=== PATIENT | female | born 1970 | race Caucasian/White ===

== ENCOUNTER 2018-07-14 15:17 | Emergency (ER) | payer BC ==
--- NOTE | 2018-07-14 15:39 | ER ---
Nurse's Notes [facility] Name: Kelsea Briones Age: 47 yrs Sex: Female : 1970 Arrival Date: 07/14/2018 Time: 15:20 Bed 9 Private MD: Diagnosis: Allergic contact dermatitis due to plants, except food Presentation: 07/14 15:21 Presenting complaint: Patient states: rash started Saturday after chopping down some trees. Rash to BUE, BLE, face, trunk. Transition of care: patient was not received from another setting of care. Onset of symptoms was July 12, 2018. Care prior to arrival: None. 15:21 Method Of Arrival: Ambulatory sv 15:21 Acuity: ARACELI 4 sv Historical: - Allergies: 15:23 No Known Allergies; sv - PMHx: 15:23 None; sv Screenin:30 Abuse screen: Denies threats or abuse. Denies injuries from another. Nutritional aj screening: No deficits noted. Tuberculosis screening: No symptoms or risk factors identified. Fall Risk None identified. Assessment: 15:30 General: Appears in no apparent distress. comfortable, Behavior is calm, cooperative, aj appropriate for age. Pain: Denies pain. Neuro: Level of Consciousness is awake, alert, obeys commands, Oriented to person, place, time, situation, Appropriate for age. Respiratory: Airway is patent Respiratory effort is even, unlabored, Respiratory pattern is regular, symmetrical. Derm: Skin is intact, is healthy with good turgor, Skin is pink, warm \T\ dry. normal, Rash noted that is itchy, on right arm and left arm. Vital Signs: 15:23 BP 123 / 81; Pulse 78; Resp 16; Temp 98.4; Pulse Ox 98% ; Weight 61.23 kg; Height 5 ft. sv 7 in. (170.18 cm); Pain 0/10; 15:23 Body Mass Index 21.14 (61.23 kg, 170.18 cm) sv ED Course: 15:20 Patient arrived in ED. mr 15:22 Triage completed. sv 15:23 Arm band placed on. sv 15:26 [facility] kb 15:26 Gaurang Liu MD is Attending Physician. kb 15:30 Patient has correct armband on for positive identification. aj 15:30 No provider procedures requiring assistance completed. Patient did not have IV access aj during this emergency room visit. 15:39 Evonne Veras, RN is Primary Nurse. aj Administered Medications: 15:44 Drug: Pepcid 20 mg Route: PO; aj 15:58 Follow up: Response: No adverse reaction aj 15:44 Drug: predniSONE 40 mg Route: PO; aj 15:58 Follow up: Response: No adverse reaction aj Outcome: 15:30 Discharged to home ambulatory. aj 15:30 Condition: good 15:30 Discharge instructions given to patient, Instructed on discharge instructions, follow up and referral plans. medication usage, Demonstrated understanding of instructions, follow-up care, medications, Prescriptions given X 2. 15:38 Discharge ordered by . kb 15:58 Patient left the ED. aj Signatures: Dayana Tobar, NICOLASA POPE-Teresa Jones, RN RN Evonne Chauhan, RN RN erum Lidia Olivares
--- NOTE | 2018-07-14 15:39 | EDPHYS ---
Physician Documentation [facility] Name: Kelsea Briones Age: 47 yrs Sex: Female : 1970 Arrival Date: 07/14/2018 Time: 15:20 Bed 9 Private MD: ED Physician Gaurang Liu HPI: 07/14 15:36 This 47 yrs old Female presents to ER via Ambulatory with complaints of Rash. kb 15:36 The patient's rash thought to be caused by Contact allergy. The rash is located on the kb body diffusely. The rash can be described as papular. Onset: The symptoms/episode began/occurred 3 day(s) ago. Associated signs and symptoms: Pertinent positives: itching. Severity of symptoms: At their worst the symptoms were moderate in the emergency department the symptoms are unchanged. Treatment given at home: Benadryl. The patient has not experienced similar symptoms in the past. The patient has not recently seen a physician. Pt reports she recently cut down some trees that may have had poison nora on them. Reports rash and itching . Historical: - Allergies: 15:23 No Known Allergies; sv - PMHx: 15:23 None; sv ROS: 15:34 Constitutional: Negative for fever, chills, and weight loss, Cardiovascular: Negative kb for chest pain, palpitations, and edema, Respiratory: Negative for shortness of breath, cough, wheezing, and pleuritic chest pain, Abdomen/GI: Negative for abdominal pain, nausea, vomiting, diarrhea, and constipation, Back: Negative for injury and pain, MS/Extremity: Negative for injury and deformity, Neuro: Negative for headache, weakness, numbness, tingling, and seizure. 15:34 Skin: Positive for rash, diffusely. Exam: 15:33 Constitutional: This is a well developed, well nourished patient who is awake, alert, kb and in no acute distress. Head/Face: Normocephalic, atraumatic. Chest/axilla: Normal chest wall appearance and motion. Nontender with no deformity. No lesions are appreciated. Cardiovascular: Regular rate and rhythm with a normal S1 and S2. No gallops, murmurs, or rubs. Normal PMI, no JVD. No pulse deficits. Respiratory: Lungs have equal breath sounds bilaterally, clear to auscultation and percussion. No rales, rhonchi or wheezes noted. No increased work of breathing, no retractions or nasal flaring. Abdomen/GI: Soft, non-tender, with normal bowel sounds. No distension or tympany. No guarding or rebound. No evidence of tenderness throughout. MS/ Extremity: Pulses equal, no cyanosis. Neurovascular intact. Full, normal range of motion. Neuro: Awake and alert, GCS 15, oriented to person, place, time, and situation. Cranial nerves II-XII grossly intact. Motor strength 5/5 in all extremities. Sensory grossly intact. Cerebellar exam normal. Normal gait. 15:33 Skin: rash a mild rash is noted, consistent with contact dermatitis, and is diffusely located. Vital Signs: 15:23 BP 123 / 81; Pulse 78; Resp 16; Temp 98.4; Pulse Ox 98% ; Weight 61.23 kg; Height 5 ft. sv 7 in. (170.18 cm); Pain 0/10; 15:23 Body Mass Index 21.14 (61.23 kg, 170.18 cm) sv MDM: 15:26 Patient medically screened. kb 15:33 Data reviewed: vital signs, nurses notes. Data interpreted: Pulse oximetry: on room air kb is 98 %. Interpretation: normal. Counseling: I had a detailed discussion with the patient and/or guardian regarding: the historical points, exam findings, and any diagnostic results supporting the discharge/admit diagnosis, the need for outpatient follow up, a family practitioner, to return to the emergency department if symptoms worsen or persist or if there are any questions or concerns that arise at home. Administered Medications: 15:44 Drug: Pepcid 20 mg Route: PO; aj 15:58 Follow up: Response: No adverse reaction aj 15:44 Drug: predniSONE 40 mg Route: PO; aj 15:58 Follow up: Response: No adverse reaction Disposition: 07/14/18 15:38 Discharged to Home. Impression: Allergic contact dermatitis due to plants, except food. - Condition is Stable. - Discharge Instructions: Poison Nora Dermatitis, [id number]. - Prescriptions for Pepcid 20 mg Oral Tablet - take 1 tablet by ORAL route every 12 hours for 5 days; 10 tablet. Prednisone 20 mg Oral Tablet - take 1 tablet by ORAL route once daily for 5 days; 5 tablet. - Medication Reconciliation Form, Thank You Letter, Antibiotic Education, Prescription Opioid Use form. - Follow up: Emergency Department; When: As needed; Reason: Worsening of condition. Follow up: Private Physician; When: 2 - 3 days; Reason: Recheck today's complaints, Continuance of care, Re-evaluation by your physician. Addendum: 07/16/2018 07:01 Co-signature as Attending Physician, Gaurang Liu MD. r n Signatures: Dayana Tobar, TOSHIA-C TOSHIA-Teresa Jones RN RN Evonne Chauhan RN RN aj Nieto, Roman, MD MD learning specialist: (The following items were deleted from the chart) 07/14 15:58 15:38 07/14/2018 15:38 Discharged to Home. Impression: Allergic contact dermatitis due aj to plants, except food. Condition is Stable. Forms are Medication Reconciliation Form, Thank You Letter, Antibiotic Education, Prescription Opioid Use. Follow up: Emergency Department; When: As needed; Reason: Worsening of condition. Follow up: Private Physician; When: 2 - 3 days; Reason: Recheck today's complaints, Continuance of care, Re-evaluation by your physician. kb
[2018-07-14] MEDS ORDERED: FAMOTIDINE 20 MG TAB ONE (15:55)
[2018-07-14] MEDS ORDERED: predniSONE 20 MG TAB ONE (15:55)
--- OUTSIDE RECORDS SUMMARY | 2018-07-14 16:29 | XMS REPORT ---
:1970 Author Organization [employer] Care Team Providers Name Role Phone Gerard Liu Provider Role Unavailable Allergies, Adverse Reactions, Alerts Substance Reaction Event Type N.K.D.A. Info Not Available Non Drug Allergy Problems Problem Type Condition Code Onset Dates Condition Status Assessment Cervicalgia M54.2 Active Assessment Tobacco abuse counseling Z71.6 Active Assessment Drug-seeking behavior Z76.5 Active Medications Medication Code Code Instructions Start End Date Status Dosage System Date BusPIRone HCl ND 89615632139 10 MG Orally May 13, Active 1 tablet Twice a day 2018 Magnesium ND 06055093168 420 MG Orally May 13Nov 09, Active 1 tablet Oxide Once a day 2018 2018 as needed Diclofenac ND 67751833277 75 MG Orally May 13August 11, Active 1 tablet Sodium Twice a day 2018 2018 with food or milk Results No Known Results Summary Purpose eClinicalWorks Submission
== END 2018-07-14 15:58 | disposition home or self-care (01) ==
LOC: ER 15:17
DX: L23.7 Allergic contact dermatitis due to plants, except food (principal)
CPT/HCPCS: 99283; J7512

== ENCOUNTER 2018-10-30 08:00 | Emergency (ER) | payer BC ==
--- OUTSIDE RECORDS SUMMARY | 2018-10-30 08:05 | XMS REPORT ---
[...] Status Dosage System Date BusPIRone HCl ND 00129589394 10 MG Orally May 13, Active 1 tablet Twice a day 2018 Magnesium ND 36423108782 420 MG Orally May 13Nov 09, Active 1 tablet Oxide Once a day 2018 2018 as needed Diclofenac ND 83287328993 75 MG Orally May 13August 11, Active 1 tablet Sodium Twice a day 2018 2018 with food or milk Results No Known Results Summary Purpose [employer] Submission
[2018-10-30] MEDS ORDERED: MORPHINE 4 MG/ML SYR ONE (08:20)
[2018-10-30] MEDS ORDERED: ONDANSETRON 4 MG/2 ML VIAL ONE (08:20)
[2018-10-30] MEDS ORDERED: NA CHLORIDE 0.9% 1,000 ML ONE (08:20)
[2018-10-30 08:59] LABS: Absolute Lymphocytes (CBC) 1.6 K/uL (0.7-4.9); Basophils % 0.5 % (0-1.3); Hematocrit 41.5 % (36.0-45.0); Lymphocytes % 23.2 % (15.3-44.8); MPV 8.8 fL (7.6-11.3); RBC Red Blood Cell Count 4.39 M/uL (3.86-4.86)
[2018-10-30 09:12] LABS: Albumin 3.9 g/dL (3.4-5.0); Bilirubin Direct 0.1 mg/dL (0-0.2); Bilirubin Total 0.2 mg/dL (0.2-1.0); Protein, Total 7.3 g/dL (6.4-8.2)
[2018-10-30 09:37] LABS: Urine Blood 1+ (NEG); Urine Glucose NEGATIVE (NEG); Urine Protein NEGATIVE (NEG); Urine pH 5.5 (5.0-7.0)
--- NOTE | 2018-10-30 09:39 | RAD REPORT ---
EXAM DESCRIPTION: CTAbdomen Pelvis W Contrast - 10/30/2018 9:31 am CLINICAL HISTORY: Abdominal pain. Abd pain;GI bleed COMPARISON: No comparisons TECHNIQUE: Biphasic CT imaging of the abdomen and pelvis was performed with 100 ml non-ionic IV cont rast. All CT scans are performed using dose optimization technique as appropriate and may include automated exposure control or mA/KV adjustment according to patient size. FINDINGS: The lung bases are clear. The liver, spleen, pancreas, adrenal glands and kidneys are within normal limits. No bowel obstruction, free air, free fluid or abscess. Moderate fecal retention is seen in the colon. Mild thickening is present of the descending colon and rectosigmoid colon which could indicate mild colitis. The appendix is normal. No evidence of significant lymphadenopathy. No suspicious bony findings. IMPRESSION: Mild descending and rectosigmoid colitis is suspected. Moderate fecal retention in the c olon is present.
--- NOTE | 2018-10-30 10:04 | ER ---
Nurse's Notes [facility] Name: Kelsea Briones Age: 48 yrs Sex: Female : 1970 Arrival Date: 10/30/2018 Time: 08:04 Bed 5 Private MD: Gerard Liu Diagnosis: Left sided colitis;Constipation Presentation: 10/30 08:15 Presenting complaint: Constipation x 3-4 weeks, lower abdominal pain and bright red hb blood in stool x 2-3 days. Transition of care: patient was not received from another setting of care. Onset of symptoms is unknown. Risk Assessment: Do you want to hurt yourself or someone else? Patient reports no desire to harm self or others. Initial Sepsis Screen: Does the patient meet any 2 criteria? No. Patient's initial sepsis screen is negative. Does the patient have a suspected source of infection? No. Patient's initial sepsis screen is negative. Care prior to arrival: None. 08:15 Method Of Arrival: Ambulatory hb 08:15 Acuity: ARACELI 3 hb Triage Assessment: 08:17 General: Appears in no apparent distress. uncomfortable, Behavior is calm, cooperative. hb Pain: Pain currently is 7 out of 10 on a pain scale. EENT: No signs and/or symptoms were reported regarding the EENT system. Neuro: Level of Consciousness is awake, alert, obeys commands, Oriented to person, place, time, situation. Cardiovascular: Capillary refill < 3 seconds Patient's skin is warm and dry. Respiratory: Airway is patent Respiratory effort is even, unlabored, Respiratory pattern is regular, symmetrical. GI: Abdomen is flat, Bowel sounds present X 4 quads. Abd is soft and non tender X 4 quads. Reports lower abdominal pain, bloody stool. : No signs and/or symptoms were reported regarding the genitourinary system. Derm: Skin is intact, is healthy with good turgor, Skin is pink, warm \T\ dry. Musculoskeletal: No signs and/or symptoms reported regarding the musculoskeletal system. SWAMPER: 08:16 LMP N/A - Post-menopause hb Historical: - Allergies: 08:16 No Known Allergies; hb - Home Meds: 08:16 None [Active]; hb - PMHx: 08:16 Migraines; hb - PSHx: 08:16 ; hb - Immunization history:: Adult Immunizations up to date. - Social history:: Smoking status: Patient uses tobacco products, smokes one-half pack cigarettes per day. - Ebola Screening: : No symptoms or risks identified at this time. Screenin:18 Abuse screen: Denies threats or abuse. Denies injuries from another. Nutritional hb screening: No deficits noted. Tuberculosis screening: No symptoms or risk factors identified. Fall Risk None identified. Assessment: 08:18 General: see triage assessment. hb 09:00 Reassessment: Patient appears in no apparent distress at this time. Patient and/or hb family updated on plan of care and expected duration. Pain level reassessed. Patient is alert, oriented x 3, equal unlabored respirations, skin warm/dry/pink. 10:00 Reassessment: Patient appears in no apparent distress at this time. Patient and/or hb family updated on plan of care and expected duration. Pain level reassessed. Patient is alert, oriented x 3, equal unlabored respirations, skin warm/dry/pink. 11:00 Reassessment: Patient appears in no apparent distress at this time. Patient and/or hb family updated on plan of care and expected duration. Pain level reassessed. Patient is alert, oriented x 3, equal unlabored respirations, skin warm/dry/pink. Vital Signs: 08:16 BP 149 / 88; Pulse 74; Resp 16; Temp 98.5; Pulse Ox 99% on R/A; Weight 61.23 kg; Height hb 5 ft. 7 in. (170.18 cm); Pain 7/10; 09:30 BP 113 / 73; Pulse 57; Resp 16; Pulse Ox 99% on R/A; Pain 2/10; hb 10:30 BP 118 / 71; Pulse 55; Resp 16; Pulse Ox 100% on R/A; hb 11:00 BP 109 / 69; Pulse 83; Resp 16; Pulse Ox 98% on R/A; hb 08:16 Body Mass Index 21.14 (61.23 kg, 170.18 cm) ED Course: 08:04 Patient arrived in ED. mr 08:04 Gerard Liu MD is Private Physician. mr 08:05 Naga Johnson NP is PHCP. pm1 08:05 Saúl Valencia MD is Attending Physician. pm1 08:15 Nikole Joya, RN is Primary Nurse. hb 08:16 Triage completed. hb 08:16 Arm band placed on. hb 08:18 Patient has correct armband on for positive identification. Bed in low position. Call hb light in reach. 08:30 Inserted saline lock: 20 gauge in right antecubital area, using aseptic technique. hb Blood collected. 09:25 Urine collected: clean catch specimen, clear, roslyn colored. jb1 09:28 CT completed. Patient tolerated procedure well. Patient moved to CT via wheelchair. [id number] Patient moved back from CT. 09:42 CT Abd/Pelvis - IV Contrast Only In Process Unspecified. EDMS 11:09 No provider procedures requiring assistance completed. IV discontinued, intact, hb bleeding controlled, No redness/swelling at site. Pressure dressing applied. Administered Medications: 08:30 Drug: NS 0.9% 1000 ml Route: IV; Rate: 1000 ml; Site: right antecubital; hb 09:28 Follow up: Response: No adverse reaction; IV Status: Completed infusion; IV Intake: hb 1000ml 08:30 Drug: Zofran 4 mg Route: IVP; Site: right antecubital; hb 09:15 Follow up: Response: No adverse reaction; Nausea is decreased hb 08:30 Drug: morphine 4 mg {Note: RASS +1.} Route: IVP; Site: right antecubital; hb 09:10 Follow up: Response: No adverse reaction; Pain is decreased hb 10:28 Drug: Flagyl 500 mg Volume: 100 ml; Route: IVPB; Rate: 200 ml/hr; Infused Over: 30 hb mins; Site: right antecubital; 11:08 Follow up: Response: No adverse reaction; IV Status: Completed infusion; IV Intake: hb 100ml 10:30 Drug: Cipro 500 mg Route: PO; hb 11:08 Follow up: Response: No adverse reaction hb Intake: 09:28 IV: 1000ml; Total: 1000ml. hb 11:08 IV: 100ml; Total: 1100ml. hb Outcome: 10:03 Discharge ordered by . pm1 11:09 Discharged to home ambulatory. hb 11:09 Condition: stable 11:09 Discharge instructions given to patient, Instructed on discharge instructions, follow up and referral plans. medication usage, Demonstrated understanding of instructions, follow-up care, medications, Prescriptions given X 4. 11:10 Patient left the ED. hb Signatures: Dispatcher [employer] EDMS Frankie Walters jb1 Marshall, Lidia mr Naga Johnson, PEDODONTIST PEDODONTIST pm1 Nikole Joya RN RN Stephanie [id number] Corrections: (The following items were deleted from the chart) 11:09 11:07 BP 180 / 111; Pulse 83bpm; Resp 16bpm; Pulse Ox 98% RA; hb hb
--- NOTE | 2018-10-30 10:05 | EDPHYS ---
Physician Documentation [facility] Name: Kelsea Briones Age: 48 yrs Sex: Female : 1970 Arrival Date: 10/30/2018 Time: 08:04 Bed 5 Private MD: Gerard Liu ED Physician Saúl Valencia HPI: 10/30 08:15 This 48 yrs old Female presents to ER via Ambulatory with complaints of pm1 Vomiting, Rectal Bleeding. 08:15 The patient presents to the emergency department with vomiting, 1 times since the onset pm1 of symptoms, 1 times today, abdominal pain. Possible causes: unknown. The symptoms are aggravated by nothing. The symptoms are alleviated by nothing. The patient has not experienced similar symptoms in the past. The patient has not recently seen a physician. Patient with 3 months of constipation as a result of not drinking enough water while working. Patient reports bowel movement once every three weeks. Two days ago reports bowel movement with some red streaks on the stool. Today with one episode of vomiting. 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 - Social history:: Smoking status: Patient uses tobacco products, smokes one-half pack cigarettes per day. - Ebola Screening: : No symptoms or risks identified at this time. ROS: 08:15 Constitutional: Negative for fever, chills, and weight loss, Eyes: Negative for injury, pm1 pain, redness, and discharge, ENT: Negative for injury, pain, and discharge, Neck: Negative for injury, pain, and swelling, Cardiovascular: Negative for chest pain, palpitations, and edema, Respiratory: Negative for shortness of breath, cough, wheezing, and pleuritic chest pain. 08:15 Back: Negative for injury and pain, : Negative for injury, bleeding, discharge, and swelling, MS/Extremity: Negative for injury and deformity, Skin: Negative for injury, rash, and discoloration, Neuro: Negative for headache, weakness, numbness, tingling, and seizure. 08:15 Abdomen/GI: Positive for abdominal pain, nausea and vomiting, constipation, rectal bleeding. Exam: 08:15 Constitutional: This is a well developed, well nourished patient who is awake, alert, pm1 and in no acute distress. Head/Face: Normocephalic, atraumatic. Eyes: Pupils equal round and reactive to light, extra-ocular motions intact. Lids and lashes normal. Conjunctiva and sclera are non-icteric and not injected. Cornea within normal limits. Periorbital areas with no swelling, redness, or edema. ENT: Nares patent. No nasal discharge, no septal abnormalities noted. Tympanic membranes are normal and external auditory canals are clear. Oropharynx with no redness, swelling, or masses, exudates, or evidence of obstruction, uvula midline. Mucous membranes moist. Neck: Trachea midline, no thyromegaly or masses palpated, and no cervical lymphadenopathy. Supple, full range of motion without nuchal rigidity, or vertebral point tenderness. No Meningismus. Chest/axilla: Normal chest wall appearance and motion. Nontender with no deformity. No lesions are appreciated. Cardiovascular: Regular rate and rhythm with a normal S1 and S2. No gallops, murmurs, or rubs. Normal PMI, no JVD. No pulse deficits. Respiratory: Lungs have equal breath sounds bilaterally, clear to auscultation and percussion. No rales, rhonchi or wheezes noted. No increased work of breathing, no retractions or nasal flaring. Abdomen/GI: Soft, non-tender, with normal bowel sounds. No distension or tympany. No guarding or rebound. No evidence of tenderness throughout. Back: No spinal tenderness. No costovertebral tenderness. Full range of motion. Skin: Warm, dry with normal turgor. Normal color with no rashes, no lesions, and no evidence of cellulitis. MS/ Extremity: Pulses equal, no cyanosis. Neurovascular intact. Full, normal range of motion. 08:15 Neuro: Orientation: is normal, Motor: is normal, moves all fours. Vital Signs: 08:16 BP 149 / 88; Pulse 74; Resp 16; Temp 98.5; Pulse Ox 99% on R/A; Weight 61.23 kg; Height hb 5 ft. 7 in. (170.18 cm); Pain 7/10; 09:30 BP 113 / 73; Pulse 57; Resp 16; Pulse Ox 99% on R/A; Pain 2/10; hb 10:30 BP 118 / 71; Pulse 55; Resp 16; Pulse Ox 100% on R/A; hb 11:00 BP 109 / 69; Pulse 83; Resp 16; Pulse Ox 98% on R/A; hb 08:16 Body Mass Index 21.14 (61.23 kg, 170.18 cm) hb MDM: 08:07 Patient medically screened. pm1 10:01 Data reviewed: vital signs. Data interpreted: Pulse oximetry: on room air is 99 %. pm1 Interpretation: normal. Counseling: I had a detailed discussion with the patient and/or guardian regarding: the historical points, exam findings, and any diagnostic results supporting the discharge/admit diagnosis, lab results, radiology results, the need for outpatient follow up, a family practitioner, a sales assistant institutional sales, an sales representative jewelry, to return to the emergency department if symptoms worsen or persist or if there are any questions or concerns that arise at home. 10/30 08:14 Order name: Basic Metabolic Panel; Complete Time: 09:12 pm1 10/30 08:14 Order name: CBC with Diff; Complete Time: 09:05 pm1 10/30 08:14 Order name: Creatinine for Radiology; Complete Time: 09:44 pm1 10/30 08:14 Order name: Hepatic Function; Complete Time: 09:12 pm1 10/30 08:14 Order name: Lipase; Complete Time: 09:12 pm1 10/30 09:27 Order name: Urine Dipstick--Ancillary (enter results); Complete Time: 09:40 eb 10/30 08:14 Order name: CT Abd/Pelvis - IV Contrast Only; Complete Time: 09:51 pm1 10/30 08:14 Order name: IV Saline Lock; Complete Time: 08:56 pm1 10/30 09:27 Order name: Urine --Ancillary (enter results); Complete Time: 09:40 eb 10/30 08:14 Order name: Labs collected and sent; Complete Time: 08:56 pm1 10/30 08:14 Order name: Urine Dipstick-Ancillary (obtain specimen); Complete Time: 09:26 pm1 10/30 08:14 Order name: Urine Test (obtain specimen); Complete Time: 09:26 pm1 Administered Medications: 08:30 Drug: NS 0.9% 1000 ml Route: IV; Rate: 1000 ml; Site: right antecubital; hb 09:28 Follow up: Response: No adverse reaction; IV Status: Completed infusion; IV Intake: hb 1000ml 08:30 Drug: Zofran 4 mg Route: IVP; Site: right antecubital; hb 09:15 Follow up: Response: No adverse reaction; Nausea is decreased hb 08:30 Drug: morphine 4 mg {Note: RASS +1.} Route: IVP; Site: right antecubital; hb 09:10 Follow up: Response: No adverse reaction; Pain is decreased hb 10:28 Drug: Flagyl 500 mg Volume: 100 ml; Route: IVPB; Rate: 200 ml/hr; Infused Over: 30 hb mins; Site: right antecubital; 11:08 Follow up: Response: No adverse reaction; IV Status: Completed infusion; IV Intake: hb 100ml 10:30 Drug: Cipro 500 mg Route: PO; hb 11:08 Follow up: Response: No adverse reaction hb Disposition: 14:50 Co-signature as Attending Physician, Saúl Valencia MD I agree with the assessment and kdr plan of care. Disposition: 10/30/18 10:03 Discharged to Home. Impression: Left sided colitis, Constipation. - Condition is Stable. - Discharge Instructions: Constipation, Adult, Colitis. - Prescriptions for Flagyl 500 mg Oral Tablet - take 1 tablet by ORAL route every 8 hours for 10 days; 30 tablet. Cipro 500 mg Oral Tablet - take 1 tablet by ORAL route every 12 hours for 10 days; 20 tablet. Bentyl 20 mg Oral Tablet - take 1 tablet by ORAL route every 6 hours As needed; 20 tablet. Zofran 4 mg Oral Tablet - take 1 tablet by ORAL route every 12 hours As needed; 20 tablet. - Medication Reconciliation Form, Thank You Letter, Antibiotic Education, Prescription Opioid Use, Work release form form. - Follow up: Emergency Department; When: As needed; Reason: Worsening of condition. Follow up: Private Physician; When: 2 - 3 days; Reason: Recheck today's complaints, Continuance of care, Re-evaluation by your physician. - Problem is new. - Symptoms have improved. Signatures: Dispatcher [employer] EDCA Saúl Valencia MD MD kdr Marinas, Patrick PLOW MECHANIC PLOW MECHANIC pm1 Nikole Joya, RN RN hb Corrections: (The following items were deleted from the chart) 11:10 10:03 10/30/2018 10:03 Discharged to Home. Impression: Left sided colitis; hb Constipation. Condition is Stable. Forms are Medication Reconciliation Form, Thank You Letter, Antibiotic Education, Prescription Opioid Use. Follow up: Emergency Department; When: As needed; Reason: Worsening of condition. Follow up: Private Physician; When: 2 - 3 days; Reason: Recheck today's complaints, Continuance of care, Re-evaluation by your physician. Problem is new. Symptoms have improved. pm1
[2018-10-30] MEDS ORDERED: CIPROFLOXACIN HCL 500 MG TAB ONE (10:22)
[2018-10-30] MEDS ORDERED: METRONIDAZOLE 500mg IVPB 500 MG/100 ML BAG IV ONE (10:22)
== END 2018-10-30 11:10 | disposition home or self-care (01) ==
LOC: ER 08:00
DX: K52.9 Noninfective gastroenteritis and colitis, unspecified (principal); K59.00 Constipation, unspecified
CPT/HCPCS: 96365; 96361; 85025; 80048; 36415; 81025; 80076; 81003; 83690; 74177; 96375; 99284; Q9967; J7030; J2405

== ENCOUNTER 2018-12-01 15:03 | Emergency (ER) | payer BC ==
[2018-12-01] MEDS ORDERED: OSELTAMIVIR 75 MG CAP ONE (16:12)
--- NOTE | 2018-12-01 17:32 | EDPHYS ---
Physician Documentation [facility] Name: Kelsea Briones Age: 48 yrs Sex: Female : 1970 Arrival Date: 12/01/2018 Time: 15:12 Bed 11 Private MD: ED Physician Gaurang Liu HPI: 12/01 16:32 This 48 yrs old Female presents to ER via Wheelchair with complaints of Flu snw Symptoms,. 16:32 bodyaches and chills x 1 day. Onset: The symptoms/episode began/occurred suddenly, and snw became persistent. Severity of symptoms: At their worst the symptoms were moderate. It is unknown whether or not the patient has had similar symptoms in the past. It is unknown whether or not the patient has recently seen a physician. HUMAN RESOURCES MGR: 17:12 LMP N/A - iw Historical: - Allergies: 15:18 No Known Allergies; la1 - PMHx: 15:18 Migraines; la1 - Immunization history:: Adult Immunizations up to date. - Social history:: Smoking status: Patient uses tobacco products, smokes one-half pack cigarettes per day. - Ebola Screening: : No symptoms or risks identified at this time. ROS: 16:30 Constitutional: Positive for fever, chills, negative for weight loss, x 1 day Eyes: snw Negative for injury, pain, redness, and discharge, ENT: Negative for injury, pain, and discharge, Cardiovascular: Negative for chest pain, palpitations, and edema, Respiratory: Negative for shortness of breath, cough, wheezing, and pleuritic chest pain, Abdomen/GI: Negative for abdominal pain, nausea, vomiting, diarrhea, and constipation, Back: Negative for injury and pain, : Negative for injury, bleeding, discharge, and swelling, Skin: Negative for injury, rash, and discoloration, Neuro: Negative for headache, weakness, numbness, tingling, and seizure. 16:30 MS/extremity: Positive for bodyaches. Exam: 16:29 Constitutional: This is a well developed, well nourished patient who is awake, alert, snw and in no acute distress. Head/Face: Normocephalic, atraumatic. Eyes: Pupils equal round and reactive to light, extra-ocular motions intact. Lids and lashes normal. Conjunctiva and sclera are non-icteric and not injected. Cornea within normal limits. Periorbital areas with no swelling, redness, or edema. ENT: Nares patent. No nasal discharge, no septal abnormalities noted. Tympanic membranes are normal and external auditory canals are clear. Oropharynx with no redness, swelling, or masses, exudates, or evidence of obstruction, uvula midline. Mucous membranes moist. Neck: Trachea midline, no thyromegaly or masses palpated, and no cervical lymphadenopathy. Supple, full range of motion without nuchal rigidity, or vertebral point tenderness. No Meningismus. Chest/axilla: Normal chest wall appearance and motion. Nontender with no deformity. No lesions are appreciated. Cardiovascular: Regular rate and rhythm with a normal S1 and S2. No gallops, murmurs, or rubs. Normal PMI, no JVD. No pulse deficits. Respiratory: Lungs have equal breath sounds bilaterally, clear to auscultation and percussion. No rales, rhonchi or wheezes noted. No increased work of breathing, no retractions or nasal flaring. Abdomen/GI: Soft, non-tender, with normal bowel sounds. No distension or tympany. No guarding or rebound. No evidence of tenderness throughout. Back: No spinal tenderness. No costovertebral tenderness. Full range of motion. Skin: Warm, dry with normal turgor. Normal color with no rashes, no lesions, and no evidence of cellulitis. MS/ Extremity: Pulses equal, no cyanosis. Neurovascular intact. Full, normal range of motion. Neuro: Awake and alert, GCS 15, oriented to person, place, time, and situation. Cranial nerves II-XII grossly intact. Motor strength 5/5 in all extremities. Sensory grossly intact. Cerebellar exam normal. Normal gait. Psych: Awake, alert, with orientation to person, place and time. Behavior, mood, and affect are within normal limits. Vital Signs: 15:18 BP 117 / 70; Pulse 105; Resp 15; Temp 99.8; Pulse Ox 100% on R/A; Weight 63.5 kg; la1 Height 5 ft. 7 in. (170.18 cm); 15:18 Body Mass Index 21.93 (63.50 kg, 170.18 cm) la1 MDM: 16:04 Patient medically screened. snw 16:31 Data reviewed: vital signs, nurses notes. Data interpreted: Pulse oximetry: on room air snw is 100 %. Interpretation: normal. Counseling: I had a detailed discussion with the patient and/or guardian regarding: the historical points, exam findings, and any diagnostic results supporting the discharge/admit diagnosis, lab results, the need for outpatient follow up, to return to the emergency department if symptoms worsen or persist or if there are any questions or concerns that arise at home. Special discussion: Based on the history and exam findings, there is no indication for further emergent testing or inpatient evaluation. I discussed with the patient/guardian the need to see the primary care provider for further evaluation of the symptoms. 12/01 15:19 Order name: Strep la 12/01 15:19 Order name: Flu la 12/01 15:59 Order name: Influenza Screen (A ; Complete Time: 16:04 EDTN 12/01 16:00 Order name: Group A Streptococcus Rapid Sc; Complete Time: 16:04 EDTN 12/01 17:04 Order name: Throat Culture EDTN Administered Medications: 16:13 Drug: Tamiflu 75 mg Route: PO; la1 Disposition: 18:45 Co-signature as Attending Physician, Gaurang Liu MD. rn Disposition: 12/01/18 16:15 Discharged to Home. Impression: Influenza due to identified novel influenza A virus. - Condition is Stable. - Discharge Instructions: Fever, Adult, Influenza, Adult, Rehydration, Adult. - Prescriptions for Tamiflu 75 mg Oral Capsule - take 1 capsule by ORAL route every 12 hours for 5 days; 10 capsule. - Work release form, Medication Reconciliation Form, Thank You Letter, Antibiotic Education, Prescription Opioid Use form. - Follow up: Private Physician; When: 1 week; Reason: Recheck today's complaints, Continuance of care, Re-evaluation by your physician. Follow up: Emergency Department; When: As needed; Reason: Worsening of condition. Signatures: Dispatcher [employer] [facility] Catrina Ann FNP-C [employer] Jeannie Grant, RN Gaurang Clemens MD MD rn Attema, Lee, RN RN la1 Corrections: (The following items were deleted from the chart) 17:13 16:15 12/01/2018 16:15 Discharged to Home. Impression: Influenza due to identified iw novel influenza A virus. Condition is Stable. Forms are Medication Reconciliation Form, Thank You Letter, Antibiotic Education, Prescription Opioid Use. Follow up: Private Physician; When: 1 week; Reason: Recheck today's complaints, Continuance of care, Re-evaluation by your physician. Follow up: Emergency Department; When: As needed; Reason: Worsening of condition. snw
--- NOTE | 2018-12-01 17:32 | ER ---
Nurse's Notes [facility] Name: Kelsea Briones Age: 48 yrs Sex: Female : 1970 Arrival Date: 12/01/2018 Time: 15:12 Bed 11 Private MD: Diagnosis: Influenza due to identified novel influenza A virus Presentation: 12/01 15:17 Presenting complaint: Patient states: I started getting chills, body aches since la1 yesterday. Transition of care: patient was not received from another setting of care. Onset of symptoms was December 01, 2018. Risk Assessment: Do you want to hurt yourself or someone else? Patient reports no desire to harm self or others. Initial Sepsis Screen: Does the patient meet any 2 criteria? No. Patient's initial sepsis screen is negative. Does the patient have a suspected source of infection? No. Patient's initial sepsis screen is negative. Care prior to arrival: None. 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 - Social history:: Smoking status: Patient uses tobacco products, smokes one-half pack cigarettes per day. - Ebola Screening: : No symptoms or risks identified at this time. Screenin:07 Abuse screen: Denies threats or abuse. Denies injuries from another. Nutritional la1 screening: No deficits noted. Tuberculosis screening: No symptoms or risk factors identified. Fall Risk None identified. Assessment: 16:06 General: Appears in no apparent distress. Behavior is calm, cooperative. Pain: la1 Complains of pain in body aches all over. Neuro: Level of Consciousness is awake, alert, obeys commands, Oriented to person, place, time, situation. Cardiovascular: Capillary refill < 3 seconds Patient's skin is warm and dry. Respiratory: Airway is patent Respiratory effort is even, unlabored, Respiratory pattern is regular, symmetrical. GI: No signs and/or symptoms were reported involving the gastrointestinal system. : No signs and/or symptoms were reported regarding the genitourinary system. Vital Signs: 15:18 BP 117 / 70; Pulse 105; Resp 15; Temp 99.8; Pulse Ox 100% on R/A; Weight 63.5 kg; la1 Height 5 ft. 7 in. (170.18 cm); 15:18 Body Mass Index 21.93 (63.50 kg, 170.18 cm) la1 ED Course: 15:12 Patient arrived in ED. am2 15:17 Triage completed. la1 15:18 Arm band placed on right wrist. la1 16:03 Catrina Ann [facility]C [facility]. snw 16:03 Gaurang Liu MD is Attending Physician. snw 16:07 Patient has correct armband on for positive identification. la1 16:07 No provider procedures requiring assistance completed. Patient did not have IV access la1 during this emergency room visit. 16:55 Jeannie Grant, RN is Primary Nurse. iw Administered Medications: 16:13 Drug: Tamiflu 75 mg Route: PO; la1 Outcome: 16:15 Discharge ordered by MD. snw 17:12 Discharged to home ambulatory, with family. iw 17:12 Condition: good 17:12 Discharge instructions given to patient, family, Instructed on discharge instructions, follow up and referral plans. medication usage, Demonstrated understanding of instructions, follow-up care, medications, Prescriptions given X 1. 17:13 Patient left the ED. iw Signatures: Catrina Ann FNP-C FNP-Csnw Jeannie Grant RN CHARLENE iw Deric Miller RN RN la1 Evonne Zamora am2
[2018-12-01 19:36] VITALS: BP 117/70; TEMP 99.8; O2SAT 100
== END 2018-12-01 17:13 | disposition home or self-care (01) ==
LOC: ER 15:03
DX: J09.X2 Influenza due to identified novel influenza A virus with other respiratory manifestations (principal); F17.210 Nicotine dependence, cigarettes, uncomplicated
CPT/HCPCS: 87070; 87081; 87804; 99283

== ENCOUNTER 2021-01-22 09:42 | Emergency (ER) | payer BC ==
--- OUTSIDE RECORDS SUMMARY | 2021-01-22 09:47 | XMS REPORT | Continuity of Care Document ---
:1970 Author Organization [facility] t Address [address] [place] [address] Care Team Providers Name Role Phone PCP, DOES NOT HAVE A Primary Care Physician Unavailable Lund [employer] Attending Clinician LUND Attending Clinician Unavailable Andrew Rodriguez DO Attending Clinician Vero CULVER, Maureen Attending Clinician Doctor Unassigned, Name Attending Clinician Unavailable LUND Admitting Clinician Unavailable Payers Payer Name Policy Type Policy Number Effective Date Expiration Date S scot [facility] - [id number] 2020 00:00:00 OUT OF STATE Problems Condition Condition Condition Status Onset Resolution Last Treating Co mments Source Name Details Category Date Date Treatment Clinician Date Chest pain Chest pain Disease Active 2020- U nivers 0-20 ity of 00:00: [place] [address] Medical Branch Cigarette Cigarette Disease Active 2020- Uni vers smoker smoker 0-20 ity of 00:00: [place] [address] Medical Branch Family Family Disease Active 2020- Univers history of history of 0-20 it y of coronary coronary 00:00: [place] artery artery 00 Medical disease disease Branch Tobacco Tobacco Problem Active [facility] counseling counseling [facility] Irritable Irritable 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[facility] - syndrome syndrome Memori a with with l constipati constipati Ou tpati on on ent Clinics Reactive Reactive Problem Active [facility] depression depression Kaylen kes - [facility] Migraine Migraine Problem Active [facility] without without [facility] - aura and aura and Memori a without without l status status Outpati migrainosu migrainosu en t s, not s, not Clinics intractabl intractabl e e Other Other Problem Active [facility] chronic chronic [facility] - pain pain [facility] Allergies, Adverse Reactions, Alerts Allergy Allergy Status Severity Reaction(s) Onset Inactive Treating Comm ents Source Name Type Date Date Clinician NO KNOWN Drug Active Univers ALLERGIE Class ity of S [facility] Social History Social Habit Start Date Stop Date Quantity Comments Source History [facility] University o f Alcohol Comment [facility] ical Branch History of tobacco Cigarette Smoker University of use [facility] History SDLA University o f Alcohol Std Drinks [facility] History [facility] University o f Alcohol Binge [facility] al [place] Exposure to Not sure [facility] SARS-CoV-2 (event) [facility] Alcohol intake 2020-12-16 2020-12-16 Lifetime University of 00:00:00 00:00:00 non-drinker [facility] (finding) Mill[place] Cigarettes smoked 2019-03-27 2019-03-27 Univers ity of current (pack per 00:00:00 00:00:00 [facility]) - Reported Branch Tobacco use and 2019-03-27 2019-03-27 Never used Universit y of exposure 00:00:00 00:00:00 [facility] History SDOH 2019-03-27 2019-03-27 1 University o f Alcohol Frequency 00:00:00 00:00:00 [facility] [place] Sex Ass[birth year] At [birth year] Universit y of 00:00:00 00:00:00 [facility] Smoking Status Start Date Stop Date Source Current every day smoker 2019-03-27 00:00:00 Uni versity of [facility] Medications Ordered Filled Start Stop Current Ordering Indication Dosage Frequency Signature Comments Components Source Medication Medication Date Date Medication? Clinician (SIG) Name Name ketorolac 2020-03 No 30mg 30 mg, Unive rs (TORADOL) 0-16 10-16 Slow IV ity of injection 06:45: 05:58 [place], [place] 30 mg 00 :00 ONCE, 1 Medical dose, On Branch 12/17/20 at 0145, NEVAEH
Fa culty member approving Restricted medication : EMERGENCY ROOM, codeine-gua 2020-03- No 10mL 10 mL, Uni vers ifenesin 0-16 10-16 Oral, ity of (ROBITUSSIN 05:45: 04:49 [place]CE, 1 [place] AC[place] 10-100 00 :00 dose, On Medic al mg/5 mL Sat Branch oral 12/17/20 solution 10 at 0045, mL NEVAEH iohexol 2020-03- No [id number] 100mL 100 mL, U nivers (OMNIPAQUE 0-16 10-16 Intravenou it y of 350 05:15: 05:02 s, ONCE, 1 [place] BULK-100 00 :00 dose, On Medical mL) Sat Branch injection 12/17/20 100 mL at 0015, Routine albuterol 2020-03 Yes [id number] 2{puff} Inhale 2 Univers 90 0-16 Puffs ity of mcg/actuati 00:00: every 4 [place] as on inhaler 00 (four) Medical hours as Branch needed for Wheezing or Shortness of Breath. codeine-gua 2020-03- Yes [id number] 5mL Take 5 mL Univers ifenesin 0-16 10-24 by mouth ity of 10-100 mg/5 00:00: 04:59 every 6 [place] mL oral 00 :00 (six) Medical solution hours as Branch needed for Cough for up to 7 days. Indication s: acute pain ketorolac 2020-03- No 30mg 30 mg, Unive rs (TORADOL) 0-13 10-13 Slow IV ity of injection 12:45: 11:44 [place], [place] 30 mg 00 :00 ONCE, 1 Medical dose, On Branch 12/14/20 at 0745, NEVAEH
Fa culty member approving Restricted medication : KYLEIGH RODRIGUEZ methylPREDN 2020-03 Yes [id number] Take by Univers ISolone 0-13 mouth ity of (MEDROL, 00:00: SEE-INSTRU [place] as ALMA ROSA,) 4 mg 00 CTIONS. Medica l tablets follow Branch package directions naproxen 2020-03 Yes [id number] 550mg Take 1 U nivers sodium 0-13 tablet by ity of (ANAPROX 00:00: mouth 2 [place] DS) 550 mg 00 (two) Medical tablet times Branch daily with meals. methylPREDN 2020-03 Yes [id number] Take by Univers ISolone 0-13 mouth ity of (MEDROL, 00:00: SEE-INSTRU [place] as ALMA ROSA,) 4 mg 00 CTIONS. Medica l tablets follow Branch package directions naproxen 2020-03 Yes [id number] 550mg Take 1 U nivers sodium 0-13 tablet by ity of (ANAPROX 00:00: mouth 2 [place] DS) 550 mg 00 (two) Medical tablet times Branch daily with meals. cefTRIAXone Yes 1000mg 1,000 mg, Univers (ROCEPHIN) 11-08 Intramuscu ity of injection 03:30: [place], Q24H, [place] 1,000 mg 00 First dose Medic al on Sat Branch 11/07/20 at 2230, Until Discontinu ed, NEVAEH
Re ason for Anti-Infec tive: Documented Infection< br>Documen tristen Infection Site: Urine
D uration of Therapy: 7 days phenazopyri 2020- No 200mg 200 mg, U nivers dine 11-08 Oral, ity of (PYRIDIUM) 03:30: 02:50 ONCE, 1 [place] as tablet 200 00 :00 dose, Mon Medi craig mg 11/07/20 at Branch 2230, Routine phenazopyri Yes [id number] 200mg Take 1 Univers dine 200 mg - tablet by ity of tablet 00:00: mouth 3 [place] (three) Medical times Branch daily. phenazopyri Yes [id number] 200mg Take 1 Univers dine 200 mg - tablet by ity of tablet 00:00: mouth 3 [place] (three) Medical times Branch daily. phenazopyri Yes [id number] 200mg Take 1 Univers dine 200 mg 9-06 tablet by ity of tablet 00:00: mouth 3 [place] 00 (three) Medical times Branch daily. cefdinir 0 2020- Yes [id number] 300mg Take 1 U nivers 300 mg 11-07 capsule by ity of capsule 00:00: 04:59 mouth [place] 00 :00 every 12 Medical (twelve) Branch hours for 7 days. benzonatate 202-0 Yes [id number] 200mg Take 1 Univers 200 mg 5-10 capsule by ity of capsule 00:00: mouth 3 (three) Medical times Branch daily as needed for Cough. benzonatate 2020-0 Yes [id number] 200mg Take 1 Univers 200 mg 5-10 capsule by ity of capsule 00:00: mouth 3 (three) Medical times Branch daily as needed for Cough. benzonatate 2020-0 Yes [id number] 200mg Take 1 Univers 200 mg 5-10 capsule by ity of capsule 00:00: mouth (three) Medical times Branch daily as needed for Cough. benzonatate 2020-0 Yes [id number] 200mg Take 1 Univers 200 mg 5-10 capsule by ity of capsule 00:00: mouth 3 (three) Medical times Branch daily as needed for Cough. cyclobenzap 2020-0 Yes [id number] 10mg Take 1 Univers rine 10 mg 4-03 tablet by ity of tablet 00:00: mouth 3 (three) Medical times Branch daily as needed for Muscle Spasms. cyclobenzap 2020-0 Yes [id number] 10mg Take 1 Univers rine 10 mg 4-03 tablet by ity of tablet 00:00: mouth 3 (three) Medical times Branch daily as needed for Muscle Spasms. cyclobenzap 2020-0 Yes [id number] 10mg Take 1 Univers rine 10 mg 4-03 tablet by ity of tablet 00:00: mouth (three) Medical times Branch daily as needed for Muscle Spasms. cyclobenzap 2020-0 Yes [id number] 10mg Take 1 Univers rine 10 mg 4-03 tablet by ity of tablet 00:00: mouth (three) Medical times Branch daily as needed for Muscle Spasms. Jhonny Barry 2020- No Tenisha as [facility] 11-06 03-03 [place] directed [facility] - 00:[facility]: 00:00 Memoria 00 :00 l Outpati ent Clinics BusPIRone BusPIRone Yes Tenisha [address] [facility] [address] HCl HCl 3-12 [place] [facility] - 00:[facility]: Memoria 00 l Outpati ent Clinics Magnesium Magnesium 2019-0 2020- No Tenisha [address] [facility] [facility] Oxide Oxide 3-12 03-03 [place] as needed Kaylen kes - 00:00: 00:00 Memoria 00 :00 l Outpati ent Clinics Vital Signs Vital Name Observation Time Observation Value Comments Source Systolic blood 2020-12-17 06:20:00 132 mm[Hg] Univer sity of pressure [place] [facility] Diastolic blood 2020-12-17 06:20:00 79 mm[Hg] Unive rsity of pressure [place] [facility] Heart rate 2020-12-17 06:20:00 57 /min Universi ty of [place] [facility] Respiratory rate 2020-12-17 06:20:00 14 /min Univ ersity of [place] [facility] Oxygen saturation in 2020-12-17 06:20:00 96 /min University of Arterial blood by [place] [employer] craig Pulse oximetry Branch Body temperature 2020-12-17 04:18:00 36.67 Eloisa [facility] ersity of [place] [facility] Body height 2020-12-17 04:18:00 170.2 cm Universi ty [facility] [place] [facility] Body weight 2020-12-17 04:18:00 68.13 kg [facility]i ty [facility] [place] [facility] BMI 2020-12-17 04:18:00 23.52 kg/m2 [facility]i ty [facility] [place] [facility] Systolic blood 2020-12-14 12:50:00 121 mm[Hg] Univer sity of pressure [place] [facility] Diastolic blood 2020-12-14 12:50:00 76 mm[Hg] Unive rsity of pressure [place] [facility] Heart rate 2020-12-14 12:50:00 66 /min Universi ty of [place] [facility] Respiratory rate 2020-12-14 12:50:00 20 /min Univ ersity of [place] [facility] Oxygen saturation in 2020-12-14 12:50:00 94 /min University of Arterial blood by [employer] craig Pulse oximetry Branch Body temperature 2020-12-14 11:31:00 36 Eloisa Univ ersity of [place] [facility] Heart rate 2020-11-08 02:30:00 62 /min [facility]i ty [facility] [place] [facility] Oxygen saturation in 2020-11-08 02:30:00 99 /min University of Arterial blood by [place] [employer] craig Pulse oximetry Branch Diastolic blood 2020-11-08 02:00:00 74 mm[Hg] Unive rsity of pressure [facility] Systolic blood 2020-11-08 02:00:00 114 mm[Hg] Univer sity of pressure [facility] Body temperature 2020-11-07 22:12:00 37.67 Eloisa [facility] Respiratory rate 2020-11-07 22:12:00 16 /min [facility] Body height 2020-11-07 22:12:00 170.2 cm [facility] Body weight 2020-11-07 22:12:00 66.225 kg [facility] BMI 2020-11-07 22:12:00 22.87 kg/m2 [facility] Procedures Procedure Date / Time Performed Performing Clinician [facility] e CT CHEST PULMONARY 2020-12-17 05:06:04 Lani Lund [facility] ANGIOGRAM Medical Branch TROPONIN I 2020-12-17 04:50:00 [facility]FF 2020-12-17 04:50:00 Ashely [facility] N-TERMINAL PRO-BNP 2020-12-17 04:50:00 Lani Lund [facility] NOTICE OF PRIVACY 2020-12-17 04:16:05 Doctor Unassigned, No [facility] PRACTICES Name Medical Branch CONSENT/REFUSAL FOR 2020-12-17 04:12:42 Doctor Unassigned, No [facility] DIAGNOSIS AND Name Medical Branch TREATMENT XR CHEST 1 VW 2020-12-14 11:59:12 Kyleigh Rodriguez [facility] TROPONIN I 2020-12-14 11:39:00 Kyleigh Rodriguez [facility] COMP. METABOLIC PANEL 2020-12-14 11:39:00 Kyleigh Rodriguez [facility] ([id number]) Medical Branch CBC WITH DIFF 2020-12-14 11:39:00 Kyleigh Rodriguez [facility] COVID-19 (ID NOW RAPID 2020-12-14 11:39:00 Kyleigh Rodriguez Un [facility] TESTING) Medical Branch CONSENT/REFUSAL FOR 2020-12-14 11:23:11 Doctor Unassigned, No [facility] [place] DIAGNOSIS AND Name Medical Branch TREATMENT URINALYSIS 2020-11-08 00:59:00 Misti Pham [facility] CONSENT/REFUSAL FOR 2020-11-07 22:00:31 Doctor Unassigned, No [facility] [place] DIAGNOSIS AND Name Medical Branch TREATMENT Encounters Start End Encounter Admission Attending Care Care Encounter Source Date/Time Date/Time Type Type Clinicians Facility Department ID 2021-01-03 Emergency [facility] [id number] Univers 06:20:53 ity of [facility] 2021-01-02 Emergency [facility] [id number] Univers 20:40:32 ity of [facility] 2021-01-01 Emergency [facility] [id number] Univers 18:15:56 ity of [facility] 2021-01-01 Emergency [facility] [id number] Univers 10:29:56 ity of [facility] 2020-12-31 Emergency [facility] [id number] Univers 22:40:19 ity of [facility] 2020-12-30 Emergency [facility] [id number] Univers 23:50:41 ity of [facility] 2020-12-16 2020-12-17 [facility] [id number] Univers 23:25:00 02:03:00 Lani Westbrook [id number] i ty of [place] [id number] [facility] [id number] [address] 2020-12-16 2020-12-17 Emergency [facility] [id number] Univers 23:25:00 02:03:00 LANI ity [facility] 2020-12-14 2020-12-14 Emergency [facility] [id number] Univers 06:25:00 08:16:00 Kyleigh Westbrook [id number] ity [facility] [id number] [facility] [id number] [address] 2020-11-07 2020-11-07 Emergency [facility] [id number] Univers 17:15:00 22:25:00 Misti Westbrook [id number] ity of [place] [id number] [facility] [id number] [facility] 084 Branch 2020-11-07 2020-11-07 Orders Doctor FELIX [id number] Univers 00:00:00 00:00:00 Only Unassigned, KMAARI [id number] [facility] [id number] [facility] [id number] [facility] 009 Branch 2019-03-17 2019-03-17 [facility] [id number] 15:21:00 15:21:00 [facility] ent [facility] 2019-03-12 2019-03-12 [facility] [id number] 16:15:00 16:15:00 [facility] ent [facility] 2018-11-06 2018-11-06 [facility] [id number] 08:30:00 08:30:00 [facility] ent [facility] 2018-05-13 2018-05-13 [facility] [id number] 15:30:00 15:30:00 [facility] Results Test Description Test Time Test Comments Results Result Comments Source TROPONIN I 2020-12-17 05:39:20 Test Item Value Reference Range Interpretation Comme nts TROPONIN I (test code = 0.002 ng/mL See_Comment [Au tomated message] The [id number]) system which ge nerated this result tra nsmitted reference range : <=0.034. The reference r christian was not used to int erpret this result as normal/abnormal . GABBY (test code = GABBY) Reference (Normal) Range (defined by the 99th percentile reference limit): <= 0.034 ng/mL Note: Cardiac troponin begins to rise 3-4 hours after the onset of ischemia. Repeat in 4-6 hours if the sample was drawn within 3-4 hours of the onset of the symptom and found normal. Diagnosis of myocardial injury is made with acute changes in cTn concentrations with at least one serial sample above the 99th percentile upper reference limit (URL), taken together with the patient's clinical presentation. Biotin has been reported to cause a negative bias, interpret results relative to patient's use of biotin. Lab Interpretation Normal (test code = 37463-0) [facility] [id number] 05:36:19 Test Item Value Reference Range Interpretation Comments NT-proBNP (test code 179 pg/mL See_Comment H [Autom ated = [id number]) message] The system which generated this result transmitted reference range : <=125. The reference range was not used to interpret this result as normal/abnormal . GABBY (test code = GABBY) Biotin has been reported to cause a negative bias, interpret results relative to patient's use of biotin. Lab Interpretation Abnormal (test code = 65527-8) [facility] WITH [id number] 05:15:58 Test Item Value Reference Range Interpretation Comments WBC (test code = See_Comment [Automated 6690-2) message] The sy stem which generated this result transmitted reference range : 4.30 - 11.10 10*3/?L. The reference range was not used to interpret this result as normal/abnormal . RBC (test code = See_Comment [Automated 159-8) message] The sy stem which generated this result transmitted reference range : 3.93 - 5.25 10*6/?L. The reference range was not used to interpret this result as normal/abnormal . HGB (test code = 13.6 g/dL 11.6-15.0 718-7) HCT (test code = 40.6 % 35.7-45.2 4544-3) MCV (test code = 96.4 fL 80.6-95.5 H 787-2) MCH (test code = 32.3 pg 25.9-32.8 785-6) MCHC (test code = 33.5 g/dL 31.6-35.1 786-4) RDW-SD (test code = 43.4 fL 39.0-49.9 67248-2) RDW-CV (test code = 12.3 % 12.0-15.5 788-0) PLT (test code = See_Comment [Automated 777-3) message] The sy stem which generated this result transmitted reference range : 166 - 358 10*3/ ?L. The reference r christian was not used to interpret this result as normal/abnormal . MPV (test code = 10.7 fL 9.5-12.9 34960-7) NRBC/100 WBC (test See_Comment [Automat ed code = 0880350633) message] The system which generated this result transmitted reference range : 0.0 - 10.0 /100 WBCs. The refer ence range was not u sed to interpret th is result as normal/abnormal . NRBC x10^3 (test code <0.01 See_Comment [Auto mated = 9825187902) message] The s ystem which generated this result transmitted reference range : 10*3/?L. The reference range was not used to interpret this result as normal/abnormal . GRAN MAT (NEUT) % 76.4 % (test code = 770-8) IMM GRAN % (test code 0.60 % = 8509759237) LYMPH % (test code = 17.8 % 736-9) MONO % (test code = 4.0 % 5905-5) EOS % (test code = 0.8 % 713-8) BASO % (test code = 0.4 % 706-2) GRAN MAT x10^3(ANC) 7.57 10*3/uL 1.88-7.09 H (test code = 1829417594) IMM GRAN x10^3 (test 0.06 10*3/uL 0.00-0.06 code = 4564813546) LYMPH x10^3 (test code 1.76 10*3/uL 1.32-3.29 = 731-0) MONO x10^3 (test code 0.40 10*3/uL 0.33-0.92 = 742-7) EOS x10^3 (test code = 0.08 10*3/uL 0.03-0.39 711-2) BASO x10^3 (test code 0.04 10*3/uL 0.01-0.07 = 704-7) Lab Interpretation Abnormal (test code = 34335-8) [id number] 12:[facility]52 Test Item Value Reference Interpretation Comments Range TROPONIN I (test 0.001 ng/mL See_Comment [Automated code = 2869395777) message] The system which generated this result transmitted reference range : <=0.034. The reference range was not used to interpret this result as normal/abnormal . GABBY (test code = Reference (Normal) GABBY) Range (defined by the 99th percentile reference limit): <= 0.034 ng/mL Note: Cardiac troponin begins to rise 3-4 hours after the onset of ischemia. Repeat in 4-6 hours if the sample was drawn within 3-4 hours of the onset of the symptom and found normal. Diagnosis of myocardial injury is made with acute changes in cTn concentrations with at least one serial sample above the 99th percentile upper reference limit (URL), taken together with the patient's clinical presentation. Biotin has been reported to cause a negative bias, interpret results relative to patient's use of biotin. Lab Interpretation Normal (test code = 78698-2) [facility] ([id number])2020-12-14 12:22:27 Test Item Value Reference Range Interpretation Comments NA (test code = 139 mmol/L 135-145 1215665083) K (test code = 4.0 mmol/L 3.5-5.0 9190221472) CL (test code = 108 mmol/L 98-108 5281870187) CO2 TOTAL (test code 25 mmol/L 23-31 = 5061312071) AGAP (test code = 2-16 8126305751) BUN (test code = 12 mg/dL 7-23 7043901087) GLUCOSE (test code = 101 mg/dL 70-110 6595076625) CREATININE (test code 0.69 mg/dL 0.50-1.04 = 9363339646) TOTAL BILI (test code 0.4 mg/dL 0.1-1.1 = 9682343870) CALCIUM (test code = 9.4 mg/dL 8.6-10.6 8904717066) T PROTEIN (test code 6.6 g/dL 6.3-8.2 = 4655486662) ALBUMIN (test code = 4.0 g/dL 3.5-5.0 9373597166) ALK PHOS (test code = 73 U/L 34-122 6854611294) ALTv (test code = 16 U/L 5-35 1742-6) AST(SGOT) (test code 22 U/L 13-40 = 5111099505) eGFR (test code = mL/min/1.73m2 3460624158) GABBY (test code = GABBY) Association of Glomerular Filtration Rate (GFR) and Staging of Kidney Disease* + + +- +| GFR (mL/min/1.73 m2) ?| With Kidney Damage ?| ?Without Kidney Damage+ ------+ ----+ ------+| ?>90 ?| ?Stage one ?| ? Normal ?+ -+ + -+| ?60-89 ?| ?Stage two ?| ? Decreased GFR ? + + +- +| ?30-59 ?| ?Stage three ?| ? Stage three ? + + +- +| ?15-29 ?| ?Stage four ? | ? Stage four ?+ -+ + -+| ?<15 (or dialysis) ? ?| ?Stage five ? | ? Stage five ?+ -+ + -+ *Each stage assumes the associated GFR level has been in effect for at least three months. ?Stages 1 to 5, with or without kidney disease, indicate chronic kidney disease. Notes: Determination of stages one and two (with eGFR >59mL/min/1.73 m2) requires estimation of kidney damage for at least three months as defined by structural or functional abnormalities of the kidney, manifested by either:Pathological abnormalities or Markers of kidney damage (including abnormalities in the composition of the blood or urine or abnormalities in imaging tests). [facility] WITH [id number] 12:06:31 Test Item Value Reference Range Interpretation Comments WBC (test code = See_Comment [Automated 1385-2) message] The sy stem which generated this result transmitted reference range : 4.30 - 11.10 10*3/?L. The reference range was not used to interpret this result as normal/abnormal . RBC (test code = See_Comment [Automated 056-8) message] The sy stem which generated this result transmitted reference range : 3.93 - 5.25 10*6/?L. The reference range was not used to interpret this result as normal/abnormal . HGB (test code = 14.2 g/dL 11.6-15.0 718-7) HCT (test code = 42.4 % 35.7-45.2 4544-3) MCV (test code = 95.9 fL 80.6-95.5 H 787-2) MCH (test code = 32.1 pg 25.9-32.8 785-6) MCHC (test code = 33.5 g/dL 31.6-35.1 786-4) RDW-SD (test code = 43.9 fL 39.0-49.9 76024-1) RDW-CV (test code = 12.3 % 12.0-15.5 788-0) PLT (test code = See_Comment [Automated 777-3) message] The sy stem which generated this result transmitted reference range : 166 - 358 10*3/ ?L. The reference r christian was not used to interpret this result as normal/abnormal . MPV (test code = 10.9 fL 9.5-12.9 86802-6) NRBC/100 WBC (test See_Comment [Automat ed code = 3976143521) message] The system which generated this result transmitted reference range : 0.0 - 10.0 /100 WBCs. The refer ence range was not u sed to interpret th is result as normal/abnormal . NRBC x10^3 (test code <0.01 See_Comment [Auto mated = 1697787070) message] The s ystem which generated this result transmitted reference range : 10*3/?L. The reference range was not used to interpret this result as normal/abnormal . GRAN MAT (NEUT) % 73.0 % (test code = 770-8) IMM GRAN % (test code 0.30 % = 3029531919) LYMPH % (test code = 17.6 % 736-9) MONO % (test code = 7.3 % 5905-5) EOS % (test code = 1.4 % 713-8) BASO % (test code = 0.4 % 706-2) GRAN MAT x10^3(ANC) 5.07 10*3/uL 1.88-7.09 (test code = 4090070033) IMM GRAN x10^3 (test <0.03 0.00-0.06 code = 0672163600) LYMPH x10^3 (test code 1.22 10*3/uL 1.32-3.29 L = 731-0) MONO x10^3 (test code 0.51 10*3/uL 0.33-0.92 = 742-7) EOS x10^3 (test code = 0.10 10*3/uL 0.03-0.39 711-2) BASO x10^3 (test code 0.03 10*3/uL 0.01-0.07 = 704-7) Lab Interpretation Abnormal (test code = 77338-4) [facility]:06 Test Item Value Reference Range Interpretation Comments APPEARANCE (test code = Cloudy Clear A 0876018168) COLOR (test code = Radha Yellow A 1066215957) PH (test code = 4.8-8.0 3699639866) SP GRAVITY (test code = 1.003-1.030 4669726659) GLU U QUAL (test code = Normal Normal 4852407757) BLOOD (test code = 3+ Negative A 7668265380) KETONES (test code = Negative Negative 1970159509) PROTEIN (test code = 30 mg/dL Negative A 2887-8) UROBILIN (test code = Normal Normal 3489442586) BILIRUBIN (test code = Negative Negative 2186956049) NITRITE (test code = Positive Negative A 6923706047) LEUK RUBIA (test code = 250/uL Negative A 7371350609) RBC/HPF (test code = See_Comment H [Autom ated message] [id number]) The system [employer] generated this result transmitted ref erence range: 0 - 3 HP F. The reference range was not used to int erpret this result as normal/abnormal . WBC/HPF (test code = >182 See_Comment H [Autom ated message] [id number]) The system [employer] generated this result transmitted ref erence range: 0 - 5 HP F. The reference range was not used to int erpret this result as normal/abnormal . BACTERIA (test code = Moderate Negative A 1435369107) MUCOUS (test code = Marked Negative LPF A 2355224730) SQ EPITH (test code = HPF 3813216310) CA OXALATE (test code = See_Comment H [Au tomated message] [id number]) The system [employer] generated this result transmitted ref erence range: <=1 HPF. The reference range was not used to int erpret this result as normal/abnormal . TRANS EPI (test code = See_Comment H [Aut omated message] [id number]) The system [employer] generated this result transmitted ref erence range: <=1 HPF. The reference range was not used to int erpret this result as normal/abnormal . Lab Interpretation (test Abnormal code = 89007-7) [facility] [place]"
[2021-01-22] MEDS ORDERED: ONDANSETRON 4 MG/2 ML VIAL ONE (10:29)
[2021-01-22] MEDS ORDERED: MECLIZINE HCL 12.5 MG TAB ONE (10:29)
[2021-01-22 10:41] LABS: Absolute Lymphocytes (CBC) 1.9 K/uL (0.7-4.9); Basophils % 0.9 % (0-1.3); Hematocrit 41.9 % (36.0-45.0); Lymphocytes % 27.9 % (15.3-44.8)
[2021-01-22 10:42] LABS: Protime INR 0.98
[2021-01-22 10:55] LABS: ALT/SGPT 16 U/L (12-78); AST/SGOT 13 U/L (15-37); Albumin 3.3 g/dL (3.4-5.0); Alkaline Phosphatase 74 U/L (45-117); BUN Blood Urea Nitrogen 19 mg/dL (7-18); Bicarbonate 27 mmol/L (21-32); Bilirubin Direct 0.1 mg/dL (0-0.2); Bilirubin Total 0.3 mg/dL (0.2-1.0); Glucose Level 83 mg/dL (74-106); Potassium 4.1 mmol/L (3.5-5.1); Protein, Total 6.9 g/dL (6.4-8.2); Sodium Level 142 mmol/L (136-145); Troponin (Emerg Dept Use Only) < 0.02 ng/mL (0.0-0.045)
--- NOTE | 2021-01-22 11:06 | RAD REPORT ---
EXAM DESCRIPTION: CT - Head Brain Wo Cont - 01/22/2021 10:50 am CLINICAL HISTORY: DIZZINESS, persistent headache for 1 month COMPARISON: No comparisons TECHNIQUE: Axial 5 mm thick images of the head were obtained without IV contrast. All CT scans are performed using dose optimization technique as appropriate and may include automated exposure control or mA/KV adjustment according to patient size. FINDINGS: No intracranial hemorrhage, mass, edema or shift of mid-line structures. No acute infarcti on changes seen. No abnormal extra-axial fluid collections. Ventricles are normal. Physiologic calci fications are present. No sella or supra sella abnormality suspected. Globes and orbital contents are unremarkable. Mastoid air cells and visualized portions of the paranasal sinuses are clear. No acute bony findings. IMPRESSION: Negative non-contrast CT head examination.
--- NOTE | 2021-01-22 12:04 | RAD REPORT ---
EXAM DESCRIPTION: RAD - Chest Single View - 01/22/2021 11:16 am CLINICAL HISTORY: Dizziness COMPARISON: March 2019 TECHNIQUE: AP portable chest image was obtained 01/22/2021 11:16 am . FINDINGS: Lungs are clear. Heart and vasculature are normal. No measurable pleural effusion and no p neumothorax. No acute bony abnormality seen. No acute aortic findings suspected. IMPRESSION: No acute cardiopulmonary process. No significant change from comparison study.
[2021-01-22] MEDS ORDERED: DIAZEPAM 10 MG/2 ML INJ SYRINGE ONE (12:20)
[2021-01-22] MEDS ORDERED: NA CHLORIDE 0.9% 1,000 ML ONE (12:47)
--- NOTE | 2021-01-22 13:52 | ER ---
Nurse's Notes [facility] Name: Kelsea Briones Age: 50 yrs Sex: Female : 1970 Arrival Date: 01/22/2021 Time: 09:46 Bed 14 Private MD: Diagnosis: Benign paroxysmal vertigo Presentation: 01/22 09:54 Chief complaint: Patient states: For the past 3-4 weeks pt has been feeling dizzy, vg1 headaches, and nausea that is constant; states 'from the time I get up in the morning until I go back to bed at night'. Denies blurred vision, vomiting, or cough. States took BC powder about an hour ago. Coronavirus screen: Vaccine status: Patient reports being unvaccinated. Client denies travel out of the [place] in the last 14 days. Ebola Screen: Patient negative for fever greater than or equal to 101.5 degrees Fahrenheit, and additional compatible Ebola Virus Disease symptoms. Initial Sepsis Screen: Does the patient meet any 2 criteria? No. Patient's initial sepsis screen is negative. Does the patient have a suspected source of infection? No. Patient's initial sepsis screen is negative. Risk Assessment: Do you want to hurt yourself or someone else? Patient reports no desire to harm self or others. Onset of symptoms was December 22, 2020. 09:54 Method Of Arrival: Wheelchair vg1 09:54 Acuity: ARACELI 3 vg1 Triage Assessment: 09:57 General: Appears in no apparent distress. uncomfortable, Behavior is calm, cooperative. vg1 Pain: Complains of pain in head Pain currently is 10 out of 10 on a pain scale. Pain began about a month ago Noted to be grimacing, guarding, Also complains of nausea. 09:57 Neuro: Level of Consciousness is awake, alert, obeys commands, Oriented to person, vg1 place, time, situation, Reports headache Denies blurred vision. 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 - Social history:: Smoking status: Patient reports the use of cigarette tobacco products, smokes one-half pack cigarettes per day. Screenin:37 Abuse screen: Denies threats or abuse. Nutritional screening: No deficits noted. as6 Tuberculosis screening: No symptoms or risk factors identified. Fall Risk None identified. Assessment: 10:36 General: Appears in no apparent distress. comfortable, Behavior is calm, cooperative. as6 Pain: Complains of pain in abdomen. Neuro: Level of Consciousness is awake, alert, obeys commands, Oriented to person, place, time, situation, Reports dizziness, headache. Cardiovascular: Capillary refill < 3 seconds Patient's skin is warm and dry. Respiratory: Airway is patent Trachea midline Respiratory effort is even, unlabored, Respiratory pattern is regular, symmetrical. GI: Reports lower abdominal pain, nausea, vomiting. Derm: Skin is intact, is healthy with good turgor. 11:30 Reassessment: Patient and/or family updated on plan of care and expected duration. Pain as6 level reassessed. Patient is alert, oriented x 3, equal unlabored respirations, skin warm/dry/pink. 13:28 Reassessment: Patient and/or family updated on plan of care and expected duration. Pain as6 level reassessed. Patient is alert, oriented x 3, equal unlabored respirations, skin warm/dry/pink. pt resting with eyes closed, no distress noted. Vital Signs: 09:54 BP 138 / 81; Pulse 75; Resp 16; Temp 98.1; Pulse Ox 100% ; Weight 68.04 kg; Height 5 vg1 ft. 7 in. (170.18 cm); Pain 10/10; 11:29 BP 106 / 75; Pulse 62; Resp 16 S; Pulse Ox 98% on R/A; as6 13:25 BP 92 / 65; Pulse 54; Resp 14 S; Pulse Ox 97% on R/A; as6 09:54 Body Mass Index 23.49 (68.04 kg, 170.18 cm) vg1 ED Course: 09:46 Patient arrived in ED. ds1 09:57 Triage completed. vg1 09:57 Arm band placed on. vg1 10:01 Naga Johnson NP is PHCP. pm1 10:01 Gaurang Liu MD is Attending Physician. pm1 10:14 Nuno Marrero, RN is Primary Nurse. as6 10:37 Bed in low position. Call light in reach. Side rails up X2. Pulse ox on. NIBP on. Warm as6 blanket given. 10:37 Inserted saline lock: 18 gauge in right antecubital area, using aseptic technique. as6 Blood collected. 10:49 CT Head Brain wo Cont In Process Unspecified. EDMS 11:16 XRAY Chest (1 view) In Process Unspecified. EDMS 14:03 No provider procedures requiring assistance completed. IV discontinued, intact, as6 bleeding controlled, No redness/swelling at site. Pressure dressing applied. Administered Medications: 10:35 Drug: Meclizine 50 mg Route: PO; as6 11:30 Follow up: Response: No adverse reaction as6 10:35 Drug: Zofran (Ondansetron) 4 mg Route: IVP; Site: right antecubital; as6 11:30 Follow up: Response: No adverse reaction as6 12:27 Drug: Valium (diazepam) 5 mg Route: IVP; Site: right antecubital; jd3 13:33 Follow up: Response: No adverse reaction as6 12:54 Drug: NS 0.9% 1000 ml Route: IV; Rate: 1000 ml; Site: right antecubital; jd3 13:33 Follow up: Response: No adverse reaction; IV Status: Completed infusion; IV Intake: as6 1000ml Intake: 13:33 IV: 1000ml; Total: 1000ml. as6 Outcome: 13:51 Discharge ordered by MD. pm1 14:03 Discharged to home ambulatory, with family. as6 14:03 Condition: stable 14:03 Discharge instructions given to patient, Instructed on discharge instructions, follow up and referral plans. medication usage, Demonstrated understanding of instructions, follow-up care, medications, Prescriptions given X 2. 14:04 Patient left the ED. as6 Signatures: Dispatcher [employer] EDNY Alesha Meyer dsNaga Gifford, PALOMO FOOD SAFETY SCIENTIST pm1 Alex Hopper, RN RN [email or web address] Karis Barnett, CHARLENE RN vg1 Nuno Marrero, RN RN as6
--- NOTE | 2021-01-22 13:52 | EDPHYS ---
Physician Documentation [facility] Name: Kelsea Briones Age: 50 yrs Sex: Female : 1970 Arrival Date: 01/22/2021 Time: 09:46 Bed 14 Private MD: ED Physician Gaurang Liu HPI: 01/22 10:17 This 50 yrs old Female presents to ER via Wheelchair with complaints of Dizziness. pm1 10:17 The patient presents with dizziness. Onset: The symptoms/episode began/occurred 1 pm1 month(s) ago. Modifying factors: The symptoms are alleviated by holding head still, the symptoms are aggravated by movement of head, changing position. Associated signs and symptoms: Pertinent positives: nausea, Pertinent negatives: abdominal pain. Severity of symptoms: in the emergency department the symptoms are unchanged. Patient's baseline: Neuro: alert and fully oriented, Motor: no deficits, Ambulation: walks without assistance. The patient has not experienced similar symptoms in the past. The patient has not recently seen a physician, and does not have an established primary care provider. 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 - Social history:: Smoking status: Patient reports the use of cigarette tobacco products, smokes one-half pack cigarettes per day. ROS: 10:17 Constitutional: Negative for fever, chills, and weight loss, Cardiovascular: Negative pm1 for chest pain, palpitations, and edema, Respiratory: Negative for shortness of breath, cough, wheezing, and pleuritic chest pain. 10:17 MS/Extremity: Negative for injury and deformity, Skin: Negative for injury, rash, and discoloration. 10:17 Abdomen/GI: Positive for nausea, Negative for abdominal pain, vomiting, diarrhea. 10:17 Neuro: Positive for dizziness, headache, Negative for numbness, tingling, weakness. 10:17 All other systems are negative. Exam: 10:17 Constitutional: This is a well developed, well nourished patient who is awake, alert, pm1 and in no acute distress. Head/Face: Normocephalic, atraumatic. 10:17 Skin: Warm, dry with normal turgor. Normal color with no rashes, no lesions, and no pm1 evidence of cellulitis. MS/ Extremity: Pulses equal, no cyanosis. Neurovascular intact. Full, normal range of motion. 10:17 Eyes: Pupils: no acute changes, Extraocular movements: no acute changes, Conjunctiva: no acute changes, no injection, Nystagmus: present bilaterally with right garza gaze. 10:17 ENT: Exam is negative for acute changes, External ear(s): no acute changes, Ear canal(s): no acute changes, TM's: no acute changes, Mouth: no acute changes, Lips: normal, moist, Oral mucosa: normal, pink and intact. 10:17 Cardiovascular: Exam negative for acute changes, Rate: normal, Rhythm: regular, Pulses: no pulse deficits are appreciated, Heart sounds: normal, normal S1and S2. 10:17 Respiratory: Exam negative for acute changes, respiratory distress, shortness of breath, Breath sounds: are clear throughout. 10:17 Abdomen/GI: Exam negative for acute changes, Inspection: abdomen appears normal, Palpation: abdomen is soft and non-tender, in all quadrants. 10:17 Neuro: Exam negative for acute changes, Orientation: is normal, Mentation: is normal, Cranial nerves: CN II- XII are normal as tested, Motor: is normal, moves all fours. Vital Signs: 09:54 BP 138 / 81; Pulse 75; Resp 16; Temp 98.1; Pulse Ox 100% ; Weight 68.04 kg; Height 5 vg1 ft. 7 in. (170.18 cm); Pain 10/10; 11:29 BP 106 / 75; Pulse 62; Resp 16 S; Pulse Ox 98% on R/A; as6 13:25 BP 92 / 65; Pulse 54; Resp 14 S; Pulse Ox 97% on R/A; as6 09:54 Body Mass Index 23.49 (68.04 kg, 170.18 cm) vg1 MDM: 10:01 Patient medically screened. pm1 12:42 Data reviewed: vital signs. Data interpreted: Pulse oximetry: on room air is 98 %. pm1 Interpretation: normal. 13:50 Counseling: I had a detailed discussion with the patient and/or guardian regarding: the pm1 historical points, exam findings, and any diagnostic results supporting the discharge/admit diagnosis, lab results, radiology results, the need for outpatient follow up, to return to the emergency department if symptoms worsen or persist or if there are any questions or concerns that arise at home. 01/22 10:16 Order name: Basic Metabolic Panel pm1 01/22 10:16 Order name: CBC with Diff; Complete Time: 10:52 pm1 01/22 10:16 Order name: LFT's pm1 01/22 10:16 Order name: Magnesium; Complete Time: 11:03 pm1 01/22 10:16 Order name: PT-INR; Complete Time: 10:52 pm1 01/22 10:16 Order name: Troponin (emerg Dept Use Only); Complete Time: 11:03 pm1 01/22 10:16 Order name: CT Head Brain wo Cont; Complete Time: 11:11 pm1 01/22 10:16 Order name: XRAY Chest (1 view); Complete Time: 12:11 pm1 01/22 10:16 Order name: Basic Metabolic Panel; Complete Time: 11:03 EDMS 01/22 10:17 Order name: Liver (Hepatic) Function; Complete Time: 11:03 EDMS 01/22 10:16 Order name: EKG; Complete Time: 10:17 pm1 01/22 10:16 Order name: Cardiac monitoring; Complete Time: 10:32 pm1 01/22 10:16 Order name: EKG - Nurse/Tech; Complete Time: 11:29 pm1 01/22 10:16 Order name: IV Saline Lock; Complete Time: 10:32 pm1 01/22 10:16 Order name: Labs collected and sent; Complete Time: 10:32 pm1 01/22 10:16 Order name: O2 Per Protocol; Complete Time: 10:17 pm1 01/22 10:16 Order name: O2 Sat Monitoring; Complete Time: 10:17 pm1 Administered Medications: 10:35 Drug: Meclizine 50 mg Route: PO; as6 11:30 Follow up: Response: No adverse reaction as6 10:35 Drug: Zofran (Ondansetron) 4 mg Route: IVP; Site: right antecubital; as6 11:30 Follow up: Response: No adverse reaction as6 12:27 Drug: Valium (diazepam) 5 mg Route: IVP; Site: right antecubital; jd3 13:33 Follow up: Response: No adverse reaction as6 12:54 Drug: NS 0.9% 1000 ml Route: IV; Rate: 1000 ml; Site: right antecubital; jd3 13:33 Follow up: Response: No adverse reaction; IV Status: Completed infusion; IV Intake: as6 1000ml Disposition: 16:41 Co-signature as Attending Physician, Gaurang Liu MD I agree with the assessment and rn plan of care. Attestation: The patient's history, exam findings, diagnostics, and a summary of any interventions or procedures was reviewed in detail with Naga Johnson NP. Disposition Summary: 01/22/21 13:51 Discharge Ordered Location: Home pm1 Problem: new pm1 Symptoms: have improved pm1 Condition: Stable pm1 Diagnosis - Benign paroxysmal vertigo pm1 Followup: pm1 - With: Emergency Department - When: As needed - Reason: Worsening of condition Followup: pm1 - With: Private Physician - When: 2 - 3 days - Reason: Recheck today's complaints, Continuance of care, Re-evaluation by your physician Discharge Instructions: - Discharge Summary Sheet pm1 - Benign Positional Vertigo pm1 Forms: - Medication Reconciliation Form pm1 - Thank You Letter pm1 - Antibiotic Education pm1 - Prescription Opioid Use pm1 - Work release form as6 Prescriptions: - ondansetron 4 mg Oral tablet,disintegrating - place 1 tablet by TRANSLINGUAL route every 8 hours As needed; 12 tablet; pm1 Refills: 0, Product Selection Permitted - Meclizine 25 mg Oral Tablet - take 1 tablet by ORAL route every 8 hours As needed; 30 tablet; Refills: 0, pm1 Product Selection Permitted Signatures: Dispatcher [employer] Gaurang Dunlap MD MD rn Marinas, Patrick, NP DANCING TEACHER pm1 Alex Hopper RN RN Karis Kilgore RN RN vg1 Nuno Marrero RN RN as6
[2021-01-22 14:24] VITALS: TEMP 98.1
[2021-01-22 14:27] VITALS: BP 92/65; O2SAT 97
--- NOTE | 2021-01-25 08:12 | EKG ---
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
== END 2021-01-22 14:04 | disposition home or self-care (01) ==
LOC: ER 09:42
DX: H81.10 Benign paroxysmal vertigo, unspecified ear (principal); F17.210 Nicotine dependence, cigarettes, uncomplicated
CPT/HCPCS: 96361; 93005; 85025; 80048; 36415; 83735; 85610; 80076; 84484; 70450; 71045; 96375; 96374; 99284; J3360; J7030; J2405

== ENCOUNTER 2021-06-30 11:55 | Inpatient (IN) | payer BC, SELFPAY ==
--- OUTSIDE RECORDS SUMMARY | 2021-06-30 11:59 | XMS REPORT | Continuity of Care Document ---
:1970 Author Organization [facility] t Address [address] [place] [address] Care Team Providers Name Role Phone Pcp, Does Not Have A Primary Care Physician Mahendra Attending Clinician Unavailable Doctor Unassigned, Name Attending Clinician Unavailable SUZANNE Attending Clinician Unavailable Singer MCCABE Attending Clinician Suzanne MCCABE Attending Clinician Ashely BONILLAP Attending Clinician ASHELY Attending Clinician Unavailable Andrew Rodriguez DO Attending Clinician Vero CULVER, G Attending Clinician SUZANNE Admitting Clinician Unavailable Suzanne MCCABE Admitting Clinician ASHELY Admitting Clinician Unavailable Payers Payer Name Policy Type Policy Number Effective Date Expiration Date S scot [facility] - [id number] 2020 00:00:00 OUT OF STATE Problems Condition Condition Condition Status Onset Resolution Last Treating Co mments Source Name Details Category Date Date Treatment Clinician Date Dizziness Dizziness Disease Active Uni vers 1-26 ity of 00:00: [address] Chest pain Chest pain Disease Active 2019-03 U nivers 0-20 ity of 00:00: [address] Cigarette Cigarette Disease Active 2019-03 Uni vers smoker smoker 0-20 ity of 00:00: [place] 00 Medical Branch Family Family Disease Active 2019-03 Univers history of history of 0-20 it y of coronary coronary 00:00: [place] artery artery 00 Medical disease disease Branch Tobacco Tobacco Problem Active [facility] Irritable Irritable Problem [...] Active Univers ALLERGIE Class ity of S [facility] Social History Social Habit Start Date Stop Date Quantity Comments Source History SDOH University o f Alcohol Comment [place] Med ical Branch History of tobacco Cigarette Smoker University of use [facility] History SDOH University o f Alcohol Std Drinks [facility] History SDOH University o f Alcohol Binge [facility] [place] Exposure to Not sure University of SARS-CoV-2 (event) [facility] Alcohol intake 2021-03-29 2021-03-29 Lifetime University of 00:00:00 00:00:00 non-drinker [facility] (finding) Branch Cigarettes smoked 2019-03-27 2019-03-27 Univers ity of current (pack per 00:00:00 00:00:00 [facility] ) - Reported Branch Tobacco use and 2019-03-27 2019-03-27 Never used Universit y of exposure 00:00:00 00:00:00 [facility] History SDOH 2019-03-27 2019-03-27 1 University o f Alcohol Frequency 00:00:00 00:00:00 [facility] Sex [birth year] At [birth year] Universit y of 00:00:00 00:00:00 [facility] Smoking Status Start Date Stop Date Source Current every day smoker 2019-03-27 00:00:00 Uni versity of [place] [facility] Medications Ordered Filled Start Stop Current Ordering Indication Dosage Frequency Signature Comments Components Source Medication Medication Date Date Medication? Clinician (SIG) Name Name aspirin 81 0 2021- No [id number] 81mg Take 1 Univers mg chewable 03-31 tablet by it y of tablet 00:00: 05:59 mouth [place] 00 :00 daily for Medical 30 days. Branch aspirin 81 2021- No [id number] 81mg Take 1 Univers mg chewable 03-31 tablet by it y of tablet 00:00: 05:59 mouth [place] 00 :00 daily for Medical 30 days. Branch benzocaine- Yes 1{lozen 1 Lozenge, Univers menthoL 03-30 ge} Oral, ity of (CEPACOL 15:21: Q4HPRN, [place] SORE THROAT 18 Starting Medi craig (EHSAN-MEN)) on [facility] Branch lozenge 1 03/30/21 at Lozenge 0921, Until Discontinu ed, Routine, Sore throat aspirin Yes 81mg 81 mg, Univers chewable 03-30 Oral, ity of tablet 81 15:00: DAILY, [place] mg 00 First dose Medical on [facility] Branch 03/30/21 at 0900, Until Discontinu ed, Routine pantoprazol Yes 40mg 40 mg, Univ ers e 03-30 Oral, BID, ity of (PROTONIX) 02:00: First dose [place] EC tablet 00 (after Medical 40 mg last Branch modificati on) on Sat03/29/21 at 1999, Until Discontinu ed, Routine heparin Yes 5000U 5,000 Univers (porcine) 03-30 Units, ity of injection 02:00: [place]cut[place]o [place] 5,000 Units 00 us, Q12H, Med ical First dose Branch on Sat03/29/21 at 2000, Until Discontinu ed, Routine maalox:diph 2021- No 15mL 15 mL, Uni vers enhydrAMINE 03-30 Oral, ity of :lidocaine 01:45: 02:10 ONCE, 1 [place] as 2 % viscous 00 :00 dose, On Medi craig 1:1:1 [facility] Branch (FIRST-MOUT 03/29/21 at [facility]) 1945, oral Routine suspension 15 mL meclizine Yes 12.5mg 12.5 mg, Un annie (ANTIVERT) 1-27 Oral, ity of tablet 12.5 00:23: TIDPRN, [place] as mg 25 Starting Medical on Sat Branch 03/29/21 at 1823, Until Discontinu ed, Routine, Dizziness benzocaine- Yes [id number] 1{lozen Take 1 Univers menthoL 1-27 ge} Lozenge by ity of lozenge 00:00: mouth [place] 00 every 4 Medical (four) Branch hours as needed for Sore throat. meclizine Yes [id number] 12.5mg Take 1 Univers 12.5 mg -27 tablet by ity of tablet 00:00: mouth 3 [place] 00 (three) Medical times Branch daily as needed for Dizziness. benzocaine- Yes [id number] 1{lozen Take 1 Univers menthoL 1-27 ge} Lozenge by ity of lozenge 00:00: mouth [place] 00 every 4 Medical (four) Branch hours as needed for Sore throat. meclizine Yes [id number] 12.5mg Take 1 Univers 12.5 mg -27 tablet by ity of tablet 00:00: mouth 3 [place] 00 (three) Medical times Branch daily as needed for Dizziness. pantoprazol 2021- No [id number] 40mg Take 1 Univers e 40 mg EC 03-30 tablet by ity of tablet 00:00: 05:59 mouth [place] 00 :00 daily for Medical 30 days. Branch pantoprazol 2021- No [id number] 40mg Take 1 Univers e 40 mg EC 03-30 tablet by ity of tablet 00:00: 05:59 mouth [place] 00 :00 daily for Medical 30 days. Branch pantoprazol 2021- No 40mg 40 mg, Uni vers e 03-29 Oral, ity of (PROTONIX) 17:45: 00:36 DAILY, [place] EC tablet 00 :24 First dose Medi craig 40 mg (after Branch last modificati on) on Sat03/29/21 at 1145, Until Discontinu ed, Routine ondansetron Yes 4mg 4 mg, Slow Univers (ZOFRAN 03-29 IV Push, ity of (PF)) 17:30: Q6HPRN, [place] injection 4 06 Starting Medi craig mg on Sat Branch 03/29/21 at 1130, Until Discontinu ed, Routine, Nausea and Vomiting (N/V) HYDROcodone 2021- No 1{tbl} 1 tablet, Univers -acetaminop 03-29 Oral, ity of hen (NORCO 17:29: 17:28 Q6HPRN, [place] as 5) 5-325 mg 56 :56 Starting Medi craig tablet 1 on Sat Branch tablet 03/29/21 at 1129, Until Sat03/31/21 at 1128, Routine, Pain (scale 4-6) acetaminoph Yes 650mg 650 mg, Un annie en 03-29 Oral, ity of (TYLENOL) 17:29: Q6HPRN, [place] tablet 650 52 Starting Medic al mg on Sat Branch 03/29/21 at 1129, Until Discontinu ed, Routine, Pain (scale 1-3) nicotine 2021- No 1{patch 1 Patch, U nivers (NICODERM) 03-29 } Topical, ity of 21 mg/24 hr 16:15: 16:40 Administer [place] patch 1 00 :00 over 24 Medical Patch Hours, Branch ONCE, 1 dose, On Sat03/29/21 at 1015, Routine ketorolac 2020-03- No 30mg 30 mg, Unive rs (TORADOL) 012-17 Slow IV ity of injection 06:45: 05:58 Push, [place] 30 mg 00 :00 ONCE, 1 Medical dose, On Branch 12/17/20 at 0145, NEVAEH
[facility] medication : EMERGENCY ROOM, codeine-gua 2020-03- No 10mL 10 mL, Uni vers ifenesin 0-16 16 Oral, ity of (ROBITUSSIN 05:45: 04:49 ONCE, 1 [place] AC) 10-100 00 :00 dose, On Medic al mg/5 mL Sat Branch oral 12/17/20 solution 10 at 0045, mL NEVAEH iohexol 2020-03- No [id number] 100mL 100 mL, U nivers (OMNIPAQUE 0-16 10-16 Intravenou it y of 350 05:15: 05:02 s, ONCE, 1 [place] BULK-100 00 :00 dose, On Medical mL) Sat Branch injection 12/17/20 100 mL at 0015, Routine albuterol 2020-03 Yes [id number] 2{puff} Inhale 2 Univers 90 0-16 Puffs ity of mcg/actuati 00:00: every 4 [place] as on inhaler 00 (four) Medical hours as Branch needed for Wheezing or Shortness of Breath. albuterol 2020-03- No [id number] 2{puff} Inhale 2 Univers 90 0-16 01-26 Puffs ity of mcg/actuati 00:00: 00:00 every 4 [place] on inhaler 00 :00 (four) Medical hours as Branch needed for Wheezing or Shortness of Breath. codeine-gua 2020-03- No [id number] 5mL Take 5 mL Univers ifenesin [...] :00 ONCE, 1 Medical dose, On Branch Sat12/14/20 at 0745, ENVAEH
Fa culty member approving Restricted medication : KYLEIGH RODRIGUEZ methylPREDN 2020-03 Yes [id number] Take by Univers ISolone 0-13 mouth ity of (MEDROL, 00:00: SEE-INSTRU [place] as ALMA ROSA,) 4 mg 00 CTIONS. Medica l tablets follow Branch package directions naproxen 2020-03 Yes [id number] 550mg Take 1 U nivers sodium 0-13 tablet by ity of (ANAPROX 00:00: mouth 2 [place] DS) 550 mg 00 (two) Medical tablet times Branch daily with meals. methylPREDN 2020-03 Yes [id number] Take by Univers ISolone 0-13 mouth ity of (MEDROL, 00:00: SEE-INSTRU [place] as ALMA ROSA,) 4 mg 00 CTIONS. Medica l tablets follow Branch package directions naproxen 2020-03 Yes [id number] 550mg Take 1 U nivers sodium 0-13 tablet by ity of (ANAPROX 00:00: mouth 2 [place] DS) 550 mg 00 (two) Medical tablet times Branch daily with meals. methylPREDN 2020-03- No [id number] Take by Univers ISolone 0-13 - mouth ity of (MEDROL, 00:00: 00:00 [place]-INSTRU [place] ALMA ROSA,) 4 mg 00 :00 CTIONS. Medica l tablets follow Branch package directions naproxen 2020-03- No [id number] 550mg Take 1 Univers sodium 0-13 03-29 tablet by ity of (ANAPROX 00:00: 00:00 mouth 2 [place] DS) 550 mg 00 :00 (two) Medical tablet times Branch daily with meals. cefTRIAXone Yes 1000mg 1,000 mg, Univers (ROCEPHIN) 11-08 Intramuscu ity of injection 03:30: lar, Q24H, [place] 1,000 mg 00 First dose Medic al on Sat11/07/20 at 2230, Until Discontinu ed, NEVAEH
Re ason for Anti-Infec tive: Documented Infection< br>Documen tristen Infection Site: Urine
D uration of Therapy: 7 days phenazopyri 2020- No 200mg 200 mg, U nivers dine 11-08 09-07 Oral, ity of (PYRIDIUM) 03:30: 02:50 ONCE, 1 [place] as tablet 200 00 :00 dose, Mon Medi craig mg 11/07/20 at Branch 2230, Routine phenazopyri Yes [id number] 200mg Take 1 Univers dine 200 mg 9-06 tablet by ity of tablet 00:00: mouth 3 [place] 00 (three) Medical times Branch daily. phenazopyri Yes [id number] 200mg Take 1 Univers dine 200 mg 9-06 tablet by ity of tablet 00:00: mouth 3 [place] 00 (three) Medical times Branch daily. phenazopyri 2020-0 Yes [id number] 200mg Take 1 Univers dine 200 mg 9- tablet by ity of tablet 00:00: mouth 3 [place] (three) Medical times Branch daily. phenazopyri 2020-0 2021- No [id number] 200mg Take 1 Univers dine 200 mg 11-07 tablet by it y of tablet 00:00: 00:00 mouth 3 00 :00 (three) Medical times Branch daily. cefdinir 2020-0 2020- No [id number] 300mg Take 1 U nivers 300 mg 11-0714 capsule by ity of capsule 00:00: 04:59 mouth [place] 00 :00 every 12 Medical (twelve) Branch hours for 7 days. benzonatate Yes [id number] 200mg Take 1 Univers 200 mg 5-10 capsule by ity of capsule 00:00: mouth 3 [place] 00 (three) Medical times Branch daily as needed for Cough. benzonatate 0 Yes [id number] 200mg Take 1 Univers 200 mg 5-10 capsule by ity of capsule 00:00: mouth 3 [place] (three) Medical times Branch daily as needed for Cough. benzonatate 0 Yes [id number] 200mg Take 1 Univers 200 mg 5-10 capsule by ity of capsule 00:00: mouth 3 [place] 00 (three) Medical times Branch daily as needed for Cough. benzonatate Yes [id number] 200mg Take 1 Univers 200 mg 5-10 capsule by ity of capsule 00:00: mouth 3 [place] 00 (three) Medical times Branch daily as needed for Cough. benzonatate 0 2021- No [id number] 200mg Take 1 Univers 200 mg 5-10 - capsule by ity of capsule 00:00: 00:00 mouth 3 [place] 00 :00 (three) Medical times Branch daily as needed for Cough. cyclobenzap 2020-0 Yes [id number] 10mg Take 1 Univers rine 10 mg 4-03 tablet by ity of tablet 00:00: mouth 3 [place] 00 (three) Medical times Branch daily as needed for Muscle Spasms. cyclobenzap 2020-0 Yes [id number] 10mg Take 1 Univers rine 10 mg 4-03 tablet by ity of tablet 00:00: mouth 3 [place] 00 (three) Medical times Branch daily as needed for Muscle Spasms. cyclobenzap Yes [id number] 10mg Take 1 Univers rine 10 mg 4-03 tablet by ity of tablet 00:00: mouth 3 [place] 00 (three) Medical times Branch daily as needed for Muscle Spasms. cyclobenzap Yes [id number] 10mg Take 1 Univers rine 10 mg 4-03 tablet by ity of tablet 00:00: mouth 3 [place] 00 (three) Medical times Branch daily as needed for Muscle Spasms. cyclobenzap 2021- No [id number] 10mg Take 1 Univers rine 10 mg 4-03 - tablet by ity of tablet 00:00: 00:00 mouth 3 [place] 00 :00 (three) Medical times Branch daily as needed for Muscle Spasms. Jhonny Linzess 2018-0 2020- No Tenisha as [facility] 03-03 Mill[facility] directed [facility] Clinics BusPIRone BusPIRone 2018-0 Yes Tenisha [address] HCl HCl 3-12 Millender [facility] Magnesium Magnesium 2018-0 2020- No Tenisha [address] Oxide Oxide 3-12 03-03 Millender as needed Kaylen kes - 00:00: 00:00 [facility] 00 :[facility] Immunizations Ordered Filled Immunization Date Status Comments [facility] e Immunization Name Name Influenza Virus 2021-03-30 Completed Universit y of Vaccine Quad IM, 00:00:00 [facility] dical Preserv and ABX Branch Free 6 MO-64 YRS Influenza Virus 2021-03-30 Completed Universit y of Vaccine Quad IM, 00:00:00 [facility] dical Preserv and ABX Branch Free 6 MO-64 YRS Vital Signs Vital Name Observation Time Observation Value Comments Source Systolic blood 2021-03-30 21:31:00 109 mm[Hg] Univer sity of pressure [facility] Diastolic blood 2021-03-30 21:31:00 67 mm[Hg] Unive rsity of pressure [facility] Heart rate 2021-03-30 21:31:00 77 /min Universi ty of [facility] Respiratory rate 2021-03-30 21:31:00 18 /min Univ ersity of [place] [facility] Oxygen saturation in 2021-03-30 21:31:00 96 /min University of Arterial blood by [place] [employer] craig Pulse oximetry Branch Body temperature 2021-03-30 17:15:00 37 Eloisa Univ ersity of [place] [facility] Body weight 2021-03-30 09:15:00 66.497 kg Universi ty of [place] [facility] BMI 2021-03-30 09:15:00 22.96 kg/m2 Universi ty of [place] [facility] Body height 2021-03-29 15:00:00 170.2 cm Universi ty of [place] [facility] Systolic blood 2020-12-17 06:20:00 132 mm[Hg] Univer sity of pressure [place] [facility] Diastolic blood 2020-12-17 06:20:00 79 mm[Hg] Unive rsity of pressure [place] [facility] Heart rate 2020-12-17 06:20:00 57 /min Universi ty of [place] [facility] Respiratory rate 2020-12-17 06:20:00 14 /min Univ ersity of [place] [facility] Oxygen saturation in 2020-12-17 06:20:00 96 /min University of Arterial blood by [place] [facility] craig Pulse oximetry Branch Body temperature 2020-12-17 04:18:00 36.67 Eloisa Univ ersity of [place] [facility] Body height 2020-12-17 04:18:00 170.2 cm Universi ty of [place] [facility] Body weight 2020-12-17 04:18:00 68.13 kg Universi ty of [place] [facility] BMI 2020-12-17 04:18:00 23.52 kg/m2 Universi ty of [place] [facility] Systolic blood 2020-12-14 12:50:00 121 mm[Hg] Univer sity of pressure [place] [facility] Diastolic blood 2020-12-14 12:50:00 76 mm[Hg] Unive rsity of pressure [place] [facility] Heart rate 2020-12-14 12:50:00 66 /min Universi ty of [place] [facility] Respiratory rate 2020-12-14 12:50:00 20 /min Univ ersity of [place] [facility] Oxygen saturation in 2020-12-14 12:50:00 94 /min University of Arterial blood by [place] [employer] craig Pulse oximetry Branch Body temperature 2020-12-14 11:31:[address] [facility] Heart rate 2020-11-08 02:30:00 62 /min General acute hospital Oxygen saturation in 2020-11-08 02:30:00 99 /min [facility] Arterial blood by [facility] Pulse oximetry [place] Diastolic blood 2020-11-08 02:00:00 74 mm[Hg] Unive rsity of pressure [facility] Systolic blood 2020-11-08 02:00:00 114 mm[Hg] Univer sity of pressure [facility] Body temperature 2020-11-07 22:12:[address] [facility] Respiratory rate 2020-11-07 22:12:00 16 /min [facility] Body height 2020-11-07 22:12:00 170.2 cm General acute hospital Body weight 2020-11-07 22:12:00 66.225 kg General acute hospital BMI 2020-11-07 22:12:00 22.87 kg/m2 General acute hospital Procedures Procedure Date / Time Performing Clinician Source Performed EXTERNAL PROVIDER - ADC 2021-04-12 06:01:00 Doctor Unassigned, U [facility] REFERRAL Reydon [facility] CAROTID DUPLEX BILATERAL 2021-03-30 17:00:00 Deena Page [facility] - BY VASCULAR LAB [facility] TRANSTHORACIC ECHO (TTE) 2021-03-30 16:43:00 Gordon Pierce [facility] COMPLETE [facility] MAGNESIUM 2021-03-30 10:10:00 Gordon Pierce [facility] BASIC METABOLIC PANEL 2021-03-30 10:10:00 Gordon Pierce [facility] (NA, K, CL, CO2, GLUCOSE, Medica l Branch BUN, CREATININE, CA) CBC WITH DIFF 2021-03-30 10:10:00 Gordon Pierce [facility] TROPONIN I 2021-03-30 05:38:00 Gordon Pierce [facility] TROPONIN I 2021-03-29 17:59:00 Gordon Pierce [facility] THYROID STIMULATING 2021-03-29 17:59:00 Gordon Pierce [facility] HORMONE [facility] LIPID PANEL ([id number])(TOTAL 2021-03-29 17:59:00 Kari [facility] CHOLESTEROL, [facility] TRIGLYCERIDES, HDL) XR CHEST 1 VW 2021-03-29 12:39:22 Singer [facility] COVID-19 (ID NOW RAPID 2021-03-29 12:28:00 Singer Adam [facility] TESTING) Medical Branch LAB ONLY COVID 2021-03-29 12:28:00 Singer [facility] INTERPRETATION [facility] LIPASE 2021-03-29 12:23:00 Singer [facility] MAGNESIUM 2021-03-29 12:23:00 Singer [facility] TROPONIN I 2021-03-29 12:23:00 Singer [facility] COMP. METABOLIC PANEL 2021-03-29 12:23:00 Singer [facility] ([id number]) Medical Branch LIPID PANEL ([id number])(TOTAL 2021-03-29 12:23:00 Adam Monroy [facility] CHOLESTEROL, [facility] TRIGLYCERIDES, HDL) CBC WITH DIFF 2021-03-29 12:23:00 Singer [facility] N-TERMINAL PRO-BNP 2021-03-29 12:23:00 Singer Adam [facility] Medical [place] HB ECG ROUTINE & RHYTHM 2021-03-29 12:11:45 Singer Adam [facility] STRIP [facility] CONSENT/REFUSAL FOR 2021-03-29 12:09:00 Doctor Unassking [facility] DIAGNOSIS AND TREATMENT [place] Medical [place] HOSPITAL ADMISSION 2021-03-29 06:01:00 Doctor Denys [facility] Name Medical [place] CT CHEST PULMONARY 2020-12-17 05:06:04 Lani Childers [facility] ANGIOGRAM Medical Branch TROPONIN I 2020-12-17 04:50:00 Ashely [facility] Medical [place] CBC WITH DIFF 2020-12-17 04:50:00 Childers, Lani [facility] N-TERMINAL PRO-BNP 2020-12-17 04:50:00 Lani Childers General acute hospital NOTICE OF PRIVACY 2020-12-17 04:16:05 Doctor Denys [facility] PRACTICES [place] Medical [place] CONSENT/REFUSAL FOR 2020-12-17 04:12:42 Doctor Denys [facility] [place] [facility] DIAGNOSIS AND TREATMENT [place] Medical [place] XR CHEST 1 VW 2020-12-14 11:59:12 Kyleigh Rodriguez [facility] TROPONIN I 2020-12-14 11:39:00 Kyleigh Rodriguez [facility] COMP. METABOLIC PANEL 2020-12-14 11:39:00 Kyleigh Rodriguez [facility] ([id number]) Medical Branch CBC WITH DIFF 2020-12-14 11:39:00 Kyleigh Rodriguez [facility] COVID-19 (ID NOW RAPID 2020-12-14 11:39:00 [facility] Branch CONSENT/REFUSAL FOR 2020-12-14 11:23:11 Doctor Mcfarlane [facility] DIAGNOSIS AND TREATMENT Reydon [facility] URINALYSIS 2020-11-08 00:59:00 Misti Pham [facility] CONSENT/REFUSAL FOR 2020-11-07 22:00:31 Doctor Mcfarlane [facility] [place] [facility] DIAGNOSIS AND TREATMENT [place] Medical [place] Encounters Start End Encounter Admission Attending Care Care Encounter Source Date/Time Date/Time Type Type Clinicians Facility Department ID 2021-03-29 Outpatient DAKOTAH Mccray [facility] [id number] [facility] 11:17:20 Tenisha [id number] [facility] 2021-03-29 Outpatient DAKOTAH Mccray [facility] [id number] 10:59:03 Tenisha [id number] [facility] 2021-03-29 Outpatient DAKOTAH Mccray [facility] [id number] 10:57:25 Tenisha [id number] [facility] 2021-01-03 Emergency [facility] [id number] Univers 06:20:53 ity of [facility] 2021-01-02 Emergency [facility] [id number] Univers 20:40:32 ity of [facility] 2021-01-01 Emergency [facility] [id number] Univers 18:15:56 ity of [facility] 2021-01-01 Emergency [facility] [id number] Univers 10:29:56 ity of [facility] 2020-12-31 Emergency [facility] [id number] Univers 22:40:19 ity of [facility] 2020-12-30 Emergency [facility] [id number] Univers 23:50:41 ity of [facility] 2021-04-12 2021-04-12 Orders Doctor FELIX [id number] Univers 00:00:00 00:00:00 Only Unassigned, KAMARI [id number] ity of [place] [facility] [id number] [place] [id number] [facility] 009 Branch 2021-03-29 2021-03-30 [facility] [id number] Univers 06:12:00 15:45:[address] [facility] 2021-03-29 2021-03-30 Emergency Adam Monroy [facility] [id number] Univers 06:12:00 15:45:00 Arthur Amaya [id number] ity of [place] [id number] [facility] [id number] [place] [id number] [place] 2020-12-16 2020-12-17 Emergency [facility] [id number] Univers 23:25:00 02:03:00 Lani Westbrook [id number] i ty of [place] [id number] [facility] [id number] [place] [id number] [place] 2020-12-16 2020-12-17 Emergency [facility] E[facility] [id number] Univers 23:25:00 02:03:[address] [facility] 2020-12-14 2020-12-14 Emergency [facility] [id number] [facility] 06:25:00 08:16:00 Kyleigh Morales Dariana [id number] ity of [place] [id number] [facility] [id number] [facility] 084 Branch 2020-11-07 2020-11-07 [address] [facility] [id number] Univers 17:15:00 22:25:00 Misti Reddy Dariana [id number] ity of [place] [id number] [facility] [id number] [facility] 084 Branch 2020-11-07 2020-11-07 Orders Doctor FELIX [id number] 00:00:00 00:00:00 Only Unassigned, KAMARI [id number] ity of [place] [facility] [id number] [facility] [id number] [facility] 009 Branch 2019-03-17 2019-03-17 [facility] [id number] [facility] 15:21:00 15:21:00 [facility] 2019-03-12 2019-03-12 [facility] [id number] 16:15:00 16:15:00 [facility] 2018-11-06 2018-11-06 [facility] [id number] 08:30:00 08:30:00 [facility] Medicine Outpati ent Clinics 2018-05-13 2018-05-13 [facility] [id number] 15:30:00 15:30:00 [facility] Results Test Description Test Time Test Comments Results Result Comments Source COMPREHENSIVE METABOLIC PANEL 2021-06-20 03:40:30 Test Item Value Reference Range Interpretation Comme nts GLUCOSE (test code = 2217) 92 MG/DL 70-99 BUN (test code = 2208) 21 MG/DL 6-20 H CREATININE (test code = 0.80 MG/DL 0.60-1.30 2213) eGFR (2020 CKD-EPI) (test 89 ML/MIN/1.73 >60 code = 41177) CALC BUN/CREAT (test code = 26 RATIO 6-28 2234) SODIUM (test code = 223) 143 MEQ/L 133-146 POTASSIUM (test code = 4.5 MEQ/L 3.5-5.4 2227) CHLORIDE (test code = 2214) 105 MEQ/L 95-107 CARBON DIOXIDE (test code = 26 MEQ/L 19-31 2205) CALCIUM (test code = 2208) 9.8 MG/DL 8.5-10.5 PROTEIN, TOTAL (test code = 6.8 G/DL 6.1-8.3 2228) ALBUMIN (test code = 2200) 4.2 G/DL 3.5-5.2 CALC GLOBULIN (test code = 2.6 G/DL 1.9-3.7 2239) CALC A/G RATIO (test code = 1.6 RATIO 1.0-2.6 2233) BILIRUBIN, TOTAL (test code <0.2 MG/DL See_Comment [Automated message] The = 2206) system which ge nerated this result transmit tristen reference range: <=1.2. T he reference range was not u sed to interpret this result as normal/abnormal . ALKALINE PHOSPHATASE (test 89 U/L 40-132 code = 2203) AST (test code = 2218) 18 U/L 9-40 ALT (test code = 2219) 13 U/L 5-40 UNLESS OTHERWISE INDICATED, ALL TESTING PERFORMED [facility] PATHOLOGY [facility], [facility]. [address] [place] [id number] [employer]: MAURILIO SETHI M.D. CLIA NUMBER [id number] [place]. [id number] Magnesium [id number] 11:14:09 Test Item Value Reference Range Interpretation Comments MAGNESIUM (test code = 7153891222) 1.9 mg/dL 1.7-2.4 Lab Interpretation (test code = Normal 55630-8) [facility] (NA, K, CL, CO2, GLUCOSE, BUN, CREATININE, CA)2021-03-30 11:13:49 Test Item Value Reference Range Interpretation Comments NA (test code = 135 mmol/L 135-145 0071686885) K (test code = 4.3 mmol/L 3.5-5.0 2158532950) CL (test code = 105 mmol/L 98-108 8239850424) CO2 TOTAL (test code 26 mmol/L 23-31 = 7226051094) AGAP (test code = 2-16 9659698193) BUN (test code = 20 mg/dL 7-23 7217834992) GLUCOSE (test code = 91 mg/dL 70-110 0621245739) CREATININE (test code 0.77 mg/dL 0.50-1.04 = 1131397102) CALCIUM (test code = 9.2 mg/dL 8.6-10.6 2684922365) eGFR (test code = mL/min/1.73m2 6695463866) GABBY (test code = GABBY) Association of [...] or urine or abnormalities in imaging tests). [facility] with [id number] 10:46:42 Test Item Value Reference Range Interpretation Comments WBC (test code = See_Comment [Automated 6690-2) message] The sy stem which generated this result transmitted reference range : 4.30 - 11.10 10*3/?L. The reference range was not used to interpret this result as normal/abnormal . RBC (test code = See_Comment [Automated 789-8) message] The sy stem which generated this result transmitted reference range : 3.93 - 5.25 10*6/?L. The reference range was not used to interpret this result as normal/abnormal . HGB (test code = 15.6 g/dL 11.6-15.0 H 718-7) HCT (test code = 47.0 % 35.7-45.2 H 4544-3) MCV (test code = 97.1 fL 80.6-95.5 H 787-2) MCH (test code = 32.2 pg 25.9-32.8 785-6) MCHC (test code = 33.2 g/dL 31.6-35.1 786-4) RDW-SD (test code = 44.1 fL 39.0-49.9 20620-9) RDW-CV (test code = 12.3 % 12.0-15.5 788-0) PLT (test code = See_Comment [Automated 777-3) message] The sy stem which generated this result transmitted reference range : 166 - 358 10*3/ ?L. The reference r christian was not used to interpret this result as normal/abnormal . MPV (test code = 10.8 fL 9.5-12.9 19214-4) NRBC/100 WBC (test See_Comment [Automat ed code = 6074420336) message] The system which generated this result transmitted reference range : 0.0 - 10.0 /100 WBCs. The refer ence range was not u sed to interpret th is result as normal/abnormal . NRBC x10^3 (test code <0.01 See_Comment [Auto mated = 1144421716) message] The s ystem which generated this result transmitted reference range : 10*3/?L. The reference range was not used to interpret this result as normal/abnormal . GRAN MAT (NEUT) % 50.5 % (test code = 770-8) IMM GRAN % (test code 0.30 % = 8064786370) LYMPH % (test code = 37.2 % 736-9) MONO % (test code = 8.2 % 5905-5) EOS % (test code = 2.9 % 713-8) BASO % (test code = 0.9 % 706-2) GRAN MAT x10^3(ANC) 3.35 10*3/uL 1.88-7.09 (test code = 4315302741) IMM GRAN x10^3 (test <0.03 0.00-0.06 code = 1377509128) LYMPH x10^3 (test code 2.46 10*3/uL 1.32-3.29 = 731-0) MONO x10^3 (test code 0.54 10*3/uL 0.33-0.92 = 742-7) EOS x10^3 (test code = 0.19 10*3/uL 0.03-0.39 711-2) BASO x10^3 (test code 0.06 10*3/uL 0.01-0.07 = 704-7) Lab Interpretation Abnormal (test code = 68261-2) [id number] 06:[facility]41 Test Item Value Reference Interpretation Comments Range TROPONIN I (test 0.002 ng/mL See_Comment [Automated code = 8418566927) message] The system which generated this result [...] biotin. Lab Interpretation Normal (test code = 70784-9) [facility] Center[facility]yroid Stimulating Hormone (TSH)2021-03-29 19:20:36 Test Item Value Reference Range Interpretation Comments TSH (test code = See_Comment [Automated message] 3184927007) The system [employer] generated this result transmitted ref erence range: 0.45 - 4 .70 mIU/L. The refe rence range was not u sed to interpret this result as normal/abnor mal. Lab Interpretation (test Normal code = 89842-7) [facility] CenterTroponin [id number] 19:02:17 Test Item Value Reference Interpretation Comments Range TROPONIN I (test 0.005 ng/mL See_Comment [Automated code = 6229483592) message] The system which generated this result [...] biotin. Lab Interpretation Normal (test code = 55465-9) [facility] Center[facility] (Total Cholesterol, Triglycerides, HDL)2021-03-29 18:48:34 Test Item Value Reference Range Interpretation Comments CHOL (test code = 155 mg/dL 120-200 1717898130) HDL (test code = 78 mg/dL >50 0070414786) HDLC RATIO (test code = See_Comment [Au tomated message] 9264725570) The system [employer] generated this result transmit tristen reference range : <=4.5. The refe rence range was not u sed to interpret th is result as normal/abnormal . TRIG (test code = 121 mg/dL 30-170 5175016740) LDL CHOL (test code = 53 mg/dL See_Comment [Auto mated message] 93660-9) The system [employer] generated this result transmit tristen reference range : <=160. The refe rence range was not u sed to interpret th is result as normal/abnormal . VLDL (test code = 24 mg/dL 5-60 7355892963) Lab Interpretation (test Normal code = 87776-8) [facility] CenterLIPID PANEL (67154)(TOTAL CHOLESTEROL, TRIGLYCERIDES, HDL)2021-03-29 13:38:54 Test Item Value Reference Range Interpretation Comments CHOL (test code = 166 mg/dL 120-200 2730585222) HDL (test code = 90 mg/dL >50 5539739302) HDLC RATIO (test code = See_Comment [Au tomated message] 2815461715) The system [employer] generated this result transmit tristen reference range : <=4.5. The refe rence range was not u sed to interpret th is result as normal/abnormal . TRIG (test code = 78 mg/dL 30-170 7579194912) LDL CHOL (test code = 60 mg/dL See_Comment [Auto mated message] 75951-2) The system [employer] generated this result transmit tristen reference range : <=160. The refe rence range was not u sed to interpret th is result as normal/abnormal . VLDL (test code = 16 mg/dL 5-60 3303978220) Lab Interpretation (test Normal code = 01008-3) [facility] CenterCOMP. METABOLIC PANEL (02496)2021-03-29 13:12:56 Test Item Value Reference Range Interpretation Comments NA (test code = 138 mmol/L 135-145 3424523356) K (test code = 4.1 mmol/L 3.5-5.0 5923371259) CL (test code = 105 mmol/L 98-108 6760538706) CO2 TOTAL (test code 29 mmol/L 23-31 = 5766424380) AGAP (test code = 2-16 7348761283) BUN (test code = 16 mg/dL 7-23 7155486545) GLUCOSE (test code = 89 mg/dL 70-110 4712473097) CREATININE (test code 0.73 mg/dL 0.50-1.04 = 7245994925) TOTAL BILI (test code 0.5 mg/dL 0.1-1.1 = 6544008054) CALCIUM (test code = 9.4 mg/dL 8.6-10.6 3178479092) T PROTEIN (test code 6.7 g/dL 6.3-8.2 = 5046839800) ALBUMIN (test code = 4.3 g/dL 3.5-5.0 8796118969) ALK PHOS (test code = 76 U/L 34-122 7606718693) ALTv (test code = 16 U/L 5-35 1742-6) AST(SGOT) (test code 23 U/L 13-40 = 7204819694) eGFR (test code = mL/min/1.73m2 7562591046) GABBY (test code = GABBY) Association of [...] or urine or abnormalities in imaging tests). [facility] CenterKRISTA [id number] 13:11:16 Test Item Value Reference Interpretation Comments Range TROPONIN I (test 0.002 ng/mL See_Comment [Automated code = 9456236106) message] The system which generated this result [...] biotin. Lab Interpretation Normal (test code = 49983-0) [facility] CenterN-TERMINAL [id number] 13:08:15 Test Item Value Reference Range Interpretation Comments NT-proBNP (test code 26 pg/mL See_Comment [Autom ated = 3101427466) message] The system which generated this result transmitted reference range : <=125. The reference range was not used to interpret this result as normal/abnormal . GABBY (test code = GABBY) Biotin has been reported to cause a negative bias, interpret results relative to patient's use of biotin. Lab Interpretation Normal (test code = 23779-0) [facility] CenterMAGNESIUM2022-01-26 12:59:52 Test Item Value Reference Range Interpretation Comments MAGNESIUM (test code = 5429313074) 1.8 mg/dL 1.7-2.4 Lab Interpretation (test code = Normal 00725-4) [facility] CenterLIPASE2022-01-26 12:59:31 Test Item Value Reference Range Interpretation Comments LIPASE (test code = 9267851220) 146 U/L 0-220 Lab Interpretation (test code = Normal 71420-1) [facility] CenterCBC WITH [id number] 12:41:29 Test Item Value Reference Range Interpretation Comments WBC (test code = See_Comment [Automated 6690-2) message] The sy stem which generated this result transmitted reference range : 4.30 - 11.10 10*3/?L. The reference range was not used to interpret this result as normal/abnormal . RBC (test code = See_Comment [Automated 789-8) message] The sy stem which generated this result transmitted reference range : 3.93 - 5.25 10*6/?L. The reference range was not used to interpret this result as normal/abnormal . HGB (test code = 15.1 g/dL 11.6-15.0 H 718-7) HCT (test code = 45.6 % 35.7-45.2 H 4544-3) MCV (test code = 96.8 fL 80.6-95.5 H 787-2) MCH (test code = 32.1 pg 25.9-32.8 785-6) MCHC (test code = 33.1 g/dL 31.6-35.1 786-4) RDW-SD (test code = 43.8 fL 39.0-49.9 40392-0) RDW-CV (test code = 12.3 % 12.0-15.5 788-0) PLT (test code = See_Comment [Automated 777-3) message] The sy stem which generated this result transmitted reference range : 166 - 358 10*3/ ?L. The reference r christian was not used to interpret this result as normal/abnormal . MPV (test code = 10.4 fL 9.5-12.9 72260-1) NRBC/100 WBC (test See_Comment [Automat ed code = 3727105645) message] The system which generated this result transmitted reference range : 0.0 - 10.0 /100 WBCs. The refer ence range was not u sed to interpret th is result as normal/abnormal . NRBC x10^3 (test code <0.01 See_Comment [Auto mated = 0271088913) message] The s ystem which generated this result transmitted reference range : 10*3/?L. The reference range was not used to interpret this result as normal/abnormal . GRAN MAT (NEUT) % 76.6 % (test code = 770-8) IMM GRAN % (test code 0.50 % = 5230440004) LYMPH % (test code = 15.6 % 736-9) MONO % (test code = 5.1 % 5905-5) EOS % (test code = 1.6 % 713-8) BASO % (test code = 0.6 % 706-2) GRAN MAT x10^3(ANC) 7.52 10*3/uL 1.88-7.09 H (test code = 9628974504) IMM GRAN x10^3 (test 0.05 10*3/uL 0.00-0.06 code = 7434889990) LYMPH x10^3 (test code 1.53 10*3/uL 1.32-3.29 = 731-0) MONO x10^3 (test code 0.50 10*3/uL 0.33-0.92 = 742-7) EOS x10^3 (test code = 0.16 10*3/uL 0.03-0.39 711-2) BASO x10^3 (test code 0.06 10*3/uL 0.01-0.07 = 704-7) Lab Interpretation Abnormal (test code = 69253-0) [facility] CenterTROPONIN [id number] 05:39:20 Test Item Value Reference Interpretation Comments Range TROPONIN I (test 0.002 ng/mL See_Comment [Automated code = 6444087565) message] The system which generated this result [...] biotin. Lab Interpretation Normal (test code = 22565-6) [facility] CenterN-TERMINAL [id number] 05:36:19 Test Item Value Reference Range Interpretation Comments NT-proBNP (test code 179 pg/mL See_Comment H [Autom ated = 1130876975) message] The system which generated this result transmitted reference range : <=125. The reference range was not used to interpret this result as normal/abnormal . GABBY (test code = GABBY) Biotin has been reported to cause a negative bias, interpret results relative to patient's use of biotin. Lab Interpretation Abnormal (test code = 10077-3) [facility] WITH [id number] 05:15:58 Test Item Value Reference Range Interpretation Comments WBC (test code = See_Comment [Automated 6690-2) message] The sy stem which generated this result transmitted reference range : 4.30 - 11.10 10*3/?L. The reference range was not used to interpret this result as normal/abnormal . RBC (test code = See_Comment [Automated 789-8) message] The sy stem which generated this [...] RDW-SD (test code = 43.4 fL 39.0-49.9 70787-3) RDW-CV (test code = 12.3 % 12.0-15.5 788-0) PLT (test code = See_Comment [Automated 777-3) message] The sy stem which generated this result transmitted reference range : 166 - 358 10*3/ ?L. The reference r christian was not used to interpret this result as normal/abnormal . MPV (test code = 10.7 fL 9.5-12.9 57718-0) NRBC/100 WBC (test See_Comment [Automat ed code = 1836260490) message] The system which generated this result transmitted reference range : 0.0 - 10.0 /100 WBCs. The refer ence range was not u sed to interpret th is result as normal/abnormal . NRBC x10^3 (test code <0.01 See_Comment [Auto mated = 7382082434) message] The s [employer] which generated this result transmitted reference range : 10*3/?L. The reference range was not used to interpret this result as normal/abnormal . GRAN MAT (NEUT) % 76.4 % (test code = 770-8) IMM GRAN % (test code 0.60 % = 0144784502) LYMPH % (test code = 17.8 % 736-9) MONO % (test code = 4.0 % 5905-5) EOS % (test code = 0.8 % 713-8) BASO % (test code = 0.4 % 706-2) GRAN MAT x10^3(ANC) 7.57 10*3/uL 1.88-7.09 H (test code = 1974443003) IMM GRAN x10^3 (test 0.06 10*3/uL 0.00-0.06 code = 0555865442) LYMPH x10^3 (test code 1.76 10*3/uL 1.32-3.29 = 731-0) MONO x10^3 (test code 0.40 10*3/uL 0.33-0.92 = 742-7) EOS x10^3 (test code = 0.08 10*3/uL 0.03-0.39 711-2) BASO x10^3 (test code 0.04 10*3/uL 0.01-0.07 = 704-7) Lab Interpretation Abnormal (test code = 81369-5) [facility] [id number] 12:32:52 Test Item Value Reference Interpretation Comments Range TROPONIN I (test 0.001 ng/mL See_Comment [Automated code = 3263201933) message] The system which generated this result [...] biotin. Lab Interpretation Normal (test code = 12265-0) [facility]. METABOLIC PANEL (68138)2020-12-14 12:22:27 Test Item Value Reference Range Interpretation Comments NA (test code = 139 mmol/L 135-145 8877490683) K (test code = 4.0 mmol/L 3.5-5.0 3342781712) CL (test code = 108 mmol/L 98-108 9147022979) CO2 TOTAL (test code 25 mmol/L 23-31 = 0594870329) AGAP (test code = 2-16 0867654959) BUN (test code = 12 mg/dL 7-23 2531034672) GLUCOSE (test code = 101 mg/dL 70-110 0010301374) CREATININE (test code 0.69 mg/dL 0.50-1.04 = 2378765017) TOTAL BILI (test code 0.4 mg/dL 0.1-1.1 = 4796306278) CALCIUM (test code = 9.4 mg/dL 8.6-10.6 7390458467) T PROTEIN (test code 6.6 g/dL 6.3-8.2 = 6025899784) ALBUMIN (test code = 4.0 g/dL 3.5-5.0 3825694459) ALK PHOS (test code = 73 U/L 34-122 5661151463) ALTv (test code = 16 U/L 5-35 1742-6) AST(SGOT) (test code 22 U/L 13-40 = 7354468931) eGFR (test code = mL/min/1.73m2 4852103666) GABBY (test code = GABBY) Association of [...] or urine or abnormalities in imaging tests). [facility] WITH [id number] 12:06:31 Test Item Value Reference Range Interpretation Comments WBC (test code = See_Comment [Automated 2799-2) message] The sy stem which generated this result transmitted reference range : 4.30 - 11.10 10*3/?L. The reference range was not used to interpret this result as normal/abnormal . RBC (test code = See_Comment [Automated 722-8) message] The sy stem which generated this [...] RDW-SD (test code = 43.9 fL 39.0-49.9 51874-6) RDW-CV (test code = 12.3 % 12.0-15.5 788-0) PLT (test code = See_Comment [Automated 777-3) message] The sy stem which generated this result transmitted reference range : 166 - 358 10*3/ ?L. The reference r christian was not used to interpret this result as normal/abnormal . MPV (test code = 10.9 fL 9.5-12.9 23118-2) NRBC/100 WBC (test See_Comment [Automat ed code = 8122311694) message] The system which generated this result transmitted reference range : 0.0 - 10.0 /100 WBCs. The refer ence range was not u sed to interpret th is result as normal/abnormal . NRBC x10^3 (test code <0.01 See_Comment [Auto mated = 0000718194) message] The s ystem which generated this result transmitted reference range : 10*3/?L. The reference range was not used to interpret this result as normal/abnormal . GRAN MAT (NEUT) % 73.0 % (test code = 770-8) IMM GRAN % (test code 0.30 % = 2504449807) LYMPH % (test code = 17.6 % 736-9) MONO % (test code = 7.3 % 5905-5) EOS % (test code = 1.4 % 713-8) BASO % (test code = 0.4 % 706-2) GRAN MAT x10^3(ANC) 5.07 10*3/uL 1.88-7.09 (test code = 1068850283) IMM GRAN x10^3 (test <0.03 0.00-0.06 code = 2918192874) LYMPH x10^3 (test code 1.22 10*3/uL 1.32-3.29 L = 731-0) MONO x10^3 (test code 0.51 10*3/uL 0.33-0.92 = 742-7) EOS x10^3 (test code = 0.10 10*3/uL 0.03-0.39 711-2) BASO x10^3 (test code 0.03 10*3/uL 0.01-0.07 = 704-7) Lab Interpretation Abnormal (test code = 74634-7) [facility] 01:34:06 Test Item Value Reference Range Interpretation Comments APPEARANCE (test code = Cloudy Clear A 9396224102) COLOR (test code = Radha Yellow A 9539876161) PH (test code = 4.8-8.0 9931391522) SP GRAVITY (test code = 1.003-1.030 3112223410) GLU U QUAL (test code = Normal Normal 0000648956) BLOOD (test code = 3+ Negative A 7887701562) KETONES (test code = Negative Negative 1358781164) PROTEIN (test code = 30 mg/dL Negative A 2887-8) UROBILIN (test code = Normal Normal 9359665199) BILIRUBIN (test code = Negative Negative 1360275111) NITRITE (test code = Positive Negative A 3967586245) LEUK RUBIA (test code = 250/uL Negative A 8690617341) RBC/HPF (test code = See_Comment H [Autom ated message] 8075874492) The system [employer] generated this result transmitted ref erence range: 0 - 3 HP F. The reference range was not used to int erpret this result as normal/abnormal . WBC/HPF (test code = >182 See_Comment H [Autom ated message] 8016408937) The system [employer] generated this result transmitted ref erence range: 0 - 5 HP F. The reference range was not used to int erpret this result as normal/abnormal . BACTERIA (test code = Moderate Negative A 1809408309) MUCOUS (test code = Marked Negative LPF A 1051464341) SQ EPITH (test code = HPF 6040423020) CA OXALATE (test code = See_Comment H [Au tomated message] 5182763428) The system [employer] generated this result transmitted ref erence range: <=1 HPF. The reference range was not used to int erpret this result as normal/abnormal . TRANS EPI (test code = See_Comment H [Aut omated message] 7111159456) The system [employer] generated this result transmitted ref erence range: <=1 HPF. The reference range was not used to int erpret this result as normal/abnormal . Lab Interpretation (test Abnormal code = 33526-9) [facility]"
[2021-06-30 12:23] LABS: Hematocrit 40.9 % (36.0-45.0); Lymphocytes % 31.4 % (15.3-44.8); MPV 8.5 fL (7.6-11.3)
[2021-06-30] MEDS ORDERED: MORPHINE 4 MG/ML SYR ONE (12:26)
[2021-06-30] MEDS ORDERED: ONDANSETRON 4 MG/2 ML VIAL ONE ×2 (12:26→19:04)
[2021-06-30 12:27] LABS: Protime INR 0.98
[2021-06-30 12:43] LABS: ALT/SGPT 20 U/L (12-78); AST/SGOT 11 U/L (15-37); Albumin 3.6 g/dL (3.4-5.0); Alkaline Phosphatase 76 U/L (45-117); BUN Blood Urea Nitrogen 22 mg/dL (7-18); Bicarbonate 28 mmol/L (21-32); Bilirubin Total 0.2 mg/dL (0.2-1.0); Glucose Level 101 mg/dL (74-106); Magnesium 1.8 mg/dL (1.8-2.4); NT PRO-BNP 51 pg/mL (<125); Potassium 3.7 mmol/L (3.5-5.1); Protein, Total 6.6 g/dL (6.4-8.2); Sodium Level 143 mmol/L (136-145)
[2021-06-30 12:45] LABS: Bilirubin Direct < 0.1 mg/dL (0-0.2); Troponin High Sensitivity < 3.0 pg/mL (<58.9)
--- NOTE | 2021-06-30 12:53 | RAD REPORT ---
EXAM DESCRIPTION: Karine Single View06/30/2021 12:42 pm CLINICAL HISTORY: Chest pain COMPARISON: 2020 FINDINGS: The lungs appear clear of acute infiltrate. The heart is normal size IMPRESSION: No acute abnormalities displayed
--- NOTE | 2021-06-30 13:01 | RAD REPORT ---
EXAM DESCRIPTION: CT - Head Brain Wo Cont - 06/30/2021 12:46 pm CLINICAL HISTORY: Headache COMPARISON: None. TECHNIQUE: Computed axial tomography of the head was obtained. IV contrast was not requested. All CT scans are performed using dose optimization technique as appropriate and may include automated exposure control or mA/KV adjustment according to patient size. FINDINGS: An intracranial bleed is not seen . The ventricles are normal in caliber. No significant hypodense areas within the brain No extra-axial fluid collection is noted. Fluid within the sinuses/ mastoids is not seen. IMPRESSION: No acute intracranial abnormality is seen. If patient's symptoms persist MRI of the bra in would be recommended.
--- NOTE | 2021-06-30 17:17 | EDPHYS ---
Physician Documentation [facility] Name: Kelsea Briones Age: 50 yrs Sex: Female : 1970 Arrival Date: 06/30/2021 Time: 11:56 Bed 20 Private MD: ED Physician Saúl Valencia HPI: 06/30 12:05 This 50 yrs old Female presents to ER via Wheelchair with complaints of Chest Pain, jmm Dizziness. 12:05 The patient or guardian reports chest pain that is located primarily in the substernal [facility] area. Onset: today. The pain does not radiate. Associated signs and symptoms: Pertinent positives: dizziness. This is a 50 year old female with a no chronic medical conditions that presents to the ED with complaints of substernal chest pain. Symptoms began after a stress test performed by Dr. Lemon. Advised to go to the ER for further evaluation. . 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 - Social history:: Smoking status: Patient denies any tobacco usage or history of. ROS: 12:05 Constitutional: Negative for fever, chills, and weight loss. jmm 12:05 Cardiovascular: Positive for chest pain. 12:05 All other systems are negative. Exam: 12:05 Constitutional: This is a well developed, well nourished patient who is awake, alert, jmm and in no acute distress. Head/Face: atraumatic. Eyes: EOMI, no conjunctival erythema appreciated ENT: Moist Mucus Membranes Neck: Trachea midline, Supple Chest/axilla: Normal chest wall appearance and motion. 12:05 Respiratory: Normal respirations, no respiratory distress appreciated Abdomen/GI: Non distended, soft Back: Normal ROM Skin: General appearance color normal MS/ Extremity: Moves all extremities, no obvious deformities appreciated, no edema noted to the lower extremities Neuro: Awake and alert Psych: Behavior is normal, Mood is normal, Patient is cooperative and pleasant 12:05 Cardiovascular: Rate: normal, Rhythm: regular, Pulses: no pulse deficits are appreciated. Vital Signs: 12:06 BP 127 / 86; Weight 65.32 kg; Height 5 ft. 7 in. (170.18 cm); Pain 8/10; iw 12:15 BP 123 / 79; Pulse 75; Resp 15; Temp 97.9; Pulse Ox 98% ; Pain 8/10; jl7 13:00 BP 122 / 75; Pulse 64; Resp 15; Pulse Ox 99% ; Pain 3/10; jl7 14:23 BP 111 / 70; Pulse 60; Resp 15; Pulse Ox 98% ; jl7 15:28 BP 110 / 75; Pulse 65; Resp 15; Pulse Ox 98% ; jl7 12:06 Body Mass Index 22.55 (65.32 kg, 170.18 cm) iw MDM: 12:05 Patient medically screened. [facility] 17:11 The patient was given aspirin in the Emergency Department. Data reviewed: vital signs, [facility] nurses notes. Counseling: I had a detailed discussion with the patient and/or guardian regarding: the historical points, exam findings, and any diagnostic results supporting the discharge/admit diagnosis, radiology results, the need for further work-up and treatment in the hospital. ED course: I discussed the patient with Dr. Lemon whom recommended admission. I discussed the patient with Dr. Koo whom . 06/30 12:14 Order name: Basic Metabolic Panel; Complete Time: 13:14 [facility] 06/30 12:14 Order name: CBC with Diff; Complete Time: 12: [facility] 06/30 12:14 Order name: LFT's; Complete Time: 13:14 [facility] 06/30 12:14 Order name: Magnesium; Complete Time: 13:14 [facility] 06/30 12:14 Order name: NT PRO-BNP; Complete Time: 13:14 [facility] 06/30 12:14 Order name: PT-INR; Complete Time: 12:31 [facility] 06/30 12:14 Order name: Troponin HS; Complete Time: 13:14 [facility] 06/30 12:15 Order name: SARS-COV-2 RT PCR (Document "Date of Onset" if Symptomatic); Complete Time: [facility] 13:42 06/30 17:37 Order name: Basic Metabolic Panel [facility] 06/30 17:37 Order name: Basic Metabolic Panel [facility] 06/30 17:37 Order name: CBC with Automated Diff [facility] 06/30 17:37 Order name: CBC with Automated Diff [facility] 06/30 17:37 Order name: Comprehensive Metabolic Panel [facility] 06/30 17:37 Order name: Comprehensive Metabolic Panel [facility] 06/30 12:14 Order name: XRAY Chest (1 view); Complete Time: 13:14 [facility] 06/30 12:14 Order name: EKG; Complete Time: 12:15 [facility] 06/30 12:14 Order name: Cardiac monitoring; Complete Time: 12:16 [facility] 06/30 12:25 Order name: CT Head Brain wo Cont; Complete Time: 13:14 [facility] 06/30 17:37 Order name: CONS Physician Consult [facility] 06/30 17:37 Order name: Heart Healthy [facility] 06/30 17:37 Order name: EKG Electrocardiogram [facility] 06/30 17:37 Order name: EKG Electrocardiogram [facility] 06/30 17:37 Order name: EKG Electrocardiogram [facility] 06/30 17:37 Order name: EKG Electrocardiogram [facility] 06/30 17:37 Order name: EKG Electrocardiogram [facility] 06/30 17:37 Order name: Lipid Profile [facility] 06/30 17:37 Order name: Lipid Profile [facility] 06/30 12:14 Order name: EKG - Nurse/Tech; Complete Time: 12:16 [facility] 06/30 12:14 Order name: IV Saline Lock; Complete Time: 12:16 [facility] 06/30 12:14 Order name: Labs collected and sent; Complete Time: 12:16 [facility] 06/30 12:14 Order name: O2 Per Protocol; Complete Time: 12:16 [facility] 06/30 12:14 Order name: O2 Sat Monitoring; Complete Time: 12:16 [facility] Administered Medications: 12:37 Drug: morphine 4 mg Route: IVP; Site: right antecubital; jl7 13:00 Follow up: Response: No adverse reaction; Pain is decreased jl7 12:37 Drug: Zofran (Ondansetron) 4 mg Route: IVP; Site: right antecubital; jl7 13:00 Follow up: Response: No adverse reaction jl7 17:42 Drug: Aspirin Chewable Tablet 324 mg Route: PO; jl7 Disposition: 07/01 15:42 Co-signature as Attending Physician, Saúl Valencia MD I agree with the assessment and kdr plan of care. Disposition Summary: 06/30/21 17:17 Hospitalization Ordered Hospitalization Status: Observation [facility] Provider: Surjit Koo Location: Telemetry/MedSurg (Inpatient) jmm Condition: Stable jmm Problem: new jmm Symptoms: are unchanged jmm Bed/Room Type: Standard [facility] Room Assignment: 215(06/30/21 18:32) eb Diagnosis - Chest pain, unspecified jmm Forms: - Medication Reconciliation Form jmm - SBAR form [facility] Signatures: Dispatcher [employer] EDMS Saúl Valencia MD MD kdr Triston Perry PA PA jmm Williams, Irene RN RN Michele Monet RN RN cali7 Gloria Beckford Corrections: (The following items were deleted from the chart) 06/30 18:32 17:17 jm eb
--- NOTE | 2021-06-30 17:17 | ER ---
Nurse's Notes [facility] Name: Kelsea Briones Age: 50 yrs Sex: Female : 1970 Arrival Date: 06/30/2021 Time: 11:56 Bed 20 Private MD: Diagnosis: Chest pain, unspecified Presentation: 06/30 12:04 Chief complaint: Patient states: left sided chest pain while on the treadmill at [employer] office, was told to come to ER if her pain persisted, seen by Dr. Lemon. Coronavirus screen: At this time, the client does not indicate any symptoms associated with coronavirus-19. Ebola Screen: Patient negative for fever greater than or equal to 101.5 degrees Fahrenheit, and additional compatible Ebola Virus Disease symptoms Patient denies exposure to infectious person. Patient denies travel to an Ebola-affected area in the 21 days before illness onset. No symptoms or risks identified at this time. Risk Assessment: Do you want to hurt yourself or someone else? Patient reports no desire to harm self or others. Onset of symptoms was June 30, 2021. 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 - Social history:: Smoking status: Patient denies any tobacco usage or history of. Screenin:15 Abuse screen: Denies threats or abuse. Denies injuries from another. Nutritional jl7 screening: No deficits noted. Tuberculosis screening: No symptoms or risk factors identified. Fall Risk IV access (20 points). Total Correa Fall Scale indicates No Risk (0-24 pts). Assessment: 12:00 General: Appears in no apparent distress. uncomfortable, Behavior is calm, cooperative, jl7 appropriate for age. Pain: Complains of pain in anterior aspect of left upper chest Pain radiates to anterior aspect of left shoulder Pain currently is 8 out of 10 on a pain scale. Quality of pain is described as sharp, Pain began 2 hours ago. Is continuous. Neuro: Level of Consciousness is awake, alert, obeys commands, Oriented to person, place, time, situation. Cardiovascular: Heart tones S1 S2 present Patient's skin is warm and dry. Rhythm is regular. Respiratory: Airway is patent Respiratory effort is even, unlabored, Respiratory pattern is regular, symmetrical. GI: Reports nausea, Patient currently denies diarrhea, vomiting. Derm: Skin is pink, warm \\T\\ dry. 13:00 Reassessment: Patient appears in no apparent distress at this time. Patient and/or [facility] family updated on plan of care and expected duration. Pain level reassessed. Patient is alert, oriented x 3, equal unlabored respirations, skin warm/dry/pink. Pain decreased, rated 3-4/10 Patient states symptoms have improved. 14:00 Reassessment: Patient appears in no apparent distress at this time. No changes from [facility] previously documented assessment. Patient and/or family updated on plan of care and expected duration. Pain level reassessed. Patient is alert, oriented x 3, equal unlabored respirations, skin warm/dry/pink. 15:00 Reassessment: Patient appears in no apparent distress at this time. No changes from [facility] previously documented assessment. Patient and/or family updated on plan of care and expected duration. Pain level reassessed. Patient is alert, oriented x 3, equal unlabored respirations, skin warm/dry/pink. Awaiting ERP visit for dispo. 19:24 Reassessment: I called [phone], as the pt has been assigned room 215 upstairs. judy Registration called as well. They will have the nurse call me when she is out of report. 19:32 Reassessment: Report given to RN on 2nd floor. The pt will be taken up via w/c, by the judy tech. She reports "good response" from the morphine and zofran, given by previous nurse. Vital Signs: 12:06 BP 127 / 86; Weight 65.32 kg; Height 5 ft. 7 in. (170.18 cm); Pain 8/10; iw 12:15 BP 123 / 79; Pulse 75; Resp 15; Temp 97.9; Pulse Ox 98% ; Pain 8/10; jl7 13:00 BP 122 / 75; Pulse 64; Resp 15; Pulse Ox 99% ; Pain 3/10; jl7 14:23 BP 111 / 70; Pulse 60; Resp 15; Pulse Ox 98% ; jl7 15:28 BP 110 / 75; Pulse 65; Resp 15; Pulse Ox 98% ; jl7 12:06 Body Mass Index 22.55 (65.32 kg, 170.18 cm) ED Course: 11:56 Patient arrived in ED. am2 12:02 Triston Perry PA is PHCP. [facility] 12:02 Saúl Valencia MD is Attending Physician. m 12:05 Triage completed. iw 12:05 Arm band placed on. iw 12:05 EKG done, by ED staff, reviewed by Triston BANKS. jl7 12:15 Patient has correct armband on for positive identification. Placed in gown. Bed in low jl7 position. Call light in reach. Side rails up X2. youth nutritional monitor on. Pulse ox on. NIBP on. Warm blanket given. 12:16 Michele Ndiaye, RN is Primary Nurse. jl7 12:20 Initial lab(s) drawn, by mn, sent to lab. Inserted saline lock: 20 gauge in right jl7 antecubital area, using aseptic technique. Blood collected. Patient maintains SpO2 saturation greater than 95% on room air. 12:43 COVID swab sent to lab. jl7 12:44 XRAY Chest (1 view) In Process Unspecified. EDMS 12:47 CT Head Brain wo Cont In Process Unspecified. EDMS 17:16 Surjit Koo MD is Hospitalizing Provider. [facility] Administered Medications: 12:37 Drug: morphine 4 mg Route: IVP; Site: right antecubital; jl7 13:00 Follow up: Response: No adverse reaction; Pain is decreased jl7 12:37 Drug: Zofran (Ondansetron) 4 mg Route: IVP; Site: right antecubital; jl7 13:00 Follow up: Response: No adverse reaction jl7 17:42 Drug: Aspirin Chewable Tablet 324 mg Route: PO; jl7 Outcome: 17:17 Decision to Hospitalize by Provider. jmm 19:39 Patient left the ED. judy Signatures: Dispatcher [employer] EDMS Triston Perry PA PA [facility] Jeannie Grant RN RN Michele Ndiaye RN RN jl7 Evonne Zamora am2 Dena Grier RN RN judy Corrections: (The following items were deleted from the chart) 12:07 12:06 BP 127 / 86; iw iw
[2021-06-30] MEDS ORDERED: ACETAMINOPHEN 500 MG TAB PO PRN (17:30)
[2021-06-30] MEDS ORDERED: ALBUTEROL 2.5 MG/3 ML NEB SOL NEB PRN (17:30)
--- NOTE | 2021-06-30 17:30 | P.HP ---
Certification for Inpatient Patient admitted to: Observation With expected LOS: <2 Midnights Patient will require the following post-hospital care: None Practitioner: I am a practitioner with admitting privileges, knowledge of patient current condition, hospital course, and medical plan of care. Services: Services provided to patient in accordance with Admission requirements found in Title 42 Section 412.3 of the Code of Federal Regulations Patient History Date of Service: 06/30/21 Reason for admission: Chest pain History of Present Illness: 50-year-old female past medical history of chronic tobacco use, no hyperlipidemia or hypertension has been having chronic chest pain since the last 2 months, status post multiple hospitalization now ruled out for acute coronary syndrome. She was referred to see cardiologyDr. Troy condon who had a scheduled exercise stress test in the office today. Stress test was reportedly abnormal with patient developing recurrence of chest pain as well as dizziness and a feeling of head fullness. She was sent from the cardiology office to the emergency room. Her chest pain symptoms are resolved now. She denies any nausea or vomiting. EKG in the emergency room shows normal sinus rhythm with no ST segment changes. Initial set of cardiac enzyme was negative. Patient admitted to family history of CADin grandmother and father with history of CVA. She denies any cardiac cath in the past. Home medications list reviewed: Yes - Past Medical/Surgical History Has patient received pneumonia vaccine in the past: No Past Medical History: Patient denies medical history -: Recurrent chest pain Past Surgical History: Reviewed- Non-Contributory - Family History Family History: Reviewed- Non-Contributory - Social History Smoking Status: Heavy Tobacco smoker (>10 cigarettes/day) Counseled patient to stop smoking for: less than 10 minutes Smoking therapy provided: Yes Patient receptive to therapy: No Alcohol use: No CD- Drugs: No Caffeine use: No Place of Residence: Home Review of Systems 10-point ROS is otherwise unremarkable Cardiovascular: Chest Pain Physical Examination - Physical Exam General: Alert, In no apparent distress, Oriented x3, Cooperative HEENT: Atraumatic, Normocephalic, PERRLA Neck: Supple, JVD not distended Respiratory: Clear to auscultation bilaterally, Normal air movement Cardiovascular: No edema, Normal pulses, Regular rate/rhythm, Normal S1 S2 Capillary refill: <2 Seconds Gastrointestinal: Normal bowel sounds, Soft and benign, Non-distended, No ascites Musculoskeletal: No clubbing, No swelling Integumentary: No rashes, No breakdown, No significant lesion, No tenderness/swelling Neurological: Normal speech, Normal strength at 5/5 x4 extr, Sensation intact, Cranial nerves 3-12 intact - Studies Laboratory Data (last 24 hrs) 06/30/21 12:17: PT 10.8, INR 0.98 06/30/21 12:17: WBC 6.5, Hgb 14.1, Hct 40.9, Plt Count 252 06/30/21 12:17: Sodium 143, Potassium 3.7, BUN 22 H, Creatinine 0.80, Glucose 101, Magnesium 1.8, Total Bilirubin 0.2, AST 11 L, ALT 20, Alkaline Phosphatase 76 Assessment and Plan Discharge Plan: Home Plan to discharge in: 48 Hours - Advance Directives Does patient have a Living Will: No Does patient have a Durable POA for Healthcare: No - Code Status/Comfort Care Code Status: Full Code Physician Review: Patient Assessed, Agree with Above Assessment and Plan Physician Review Additional Text: Chest x-rayno acute infiltrate Head CTno acute intracranial abnormality Impression Chest painwith abnormal exercise stress test Possible acute coronary syndrome Plan We will admit patient to inpatient status Will do serial set of cardiac enzymes Start nitrofurantoin Started aspirin/Plavix, high-dose statin/Lovenox Borderline low blood pressure start gentle IV fluid Tobacco cessation advised, start nicotine patch Subcutaneous Lovenox for DVT prophylaxis Advance directivefull code Time Spent Managing Pts Care (In Minutes): 65
[2021-06-30] MEDS ORDERED: ASPIRIN 81 MG CHEWABLE TABLET ONE (17:36)
[2021-06-30] MEDS: MORPHINE 2 MG/ML SYR IV PRN (18:59)
[2021-06-30] MEDS: ONDANSETRON 4 MG/2 ML VIAL IV PRN (18:59)
[2021-06-30] MEDS ORDERED: MORPHINE 2 MG/ML SYR ONE (19:04)
[2021-06-30] MEDS: ATORVASTATIN 40 MG TAB PO SCH (20:26)
[2021-06-30] MEDS: ENOXAPARIN 60 MG/0.6 ML SQ SCH (20:26)
[2021-06-30] MEDS: CLOPIDOGREL 75 MG TABLET PO SCH (20:26)
[2021-06-30] MEDS: NA CHLORIDE 0.9% 1,000 ML IV SCH (20:27)
[2021-06-30 21:34] VITALS: BMI 22.4
[2021-07-01] MEDS: ONDANSETRON 4 MG/2 ML VIAL IV PRN ×2 (01:00→10:59)
[2021-07-01] MEDS: MORPHINE 2 MG/ML SYR IV PRN ×2 (01:00→20:24)
[2021-07-01] MEDS ORDERED: MECLIZINE HCL 12.5 MG TAB PO ONE (02:24)
[2021-07-01] MEDS: NA CHLORIDE 0.9% 1,000 ML IV SCH ×2 (04:30→19:45)
[2021-07-01] MEDS ORDERED: NA CHLORIDE 0.9% 500 ML IV ONE (04:36)
[2021-07-01 05:35] LABS: Absolute Lymphocytes (CBC) 2.7 K/uL (0.7-4.9); Lymphocytes % 40.5 % (15.3-44.8); RBC Red Blood Cell Count 3.93 M/uL (3.86-4.86)
[2021-07-01 05:57] LABS: Bilirubin Total 0.2 mg/dL (0.2-1.0); Potassium 4.4 mmol/L (3.5-5.1); Protein, Total 5.5 g/dL (6.4-8.2)
[2021-07-01] MEDS: CLOPIDOGREL 75 MG TABLET PO SCH (08:47)
[2021-07-01] MEDS: NICOTINE 14 MG/PAT TD SCH (08:47)
[2021-07-01] MEDS: ASPIRIN EC 81 MG TAB PO SCH (08:47)
[2021-07-01] MEDS: ENOXAPARIN 60 MG/0.6 ML SQ SCH ×2 (08:48→20:23)
[2021-07-01] MEDS ORDERED: SODIUM CHL 0.9% 1000 ML BAG IV ONE (09:00)
--- NOTE | 2021-07-01 09:46 | EKG ---
Test Date: 2021-06-30 Test Time: 12:05:50 Scholarship Counselor: JULIO MEASUREMENT RESULTS: Intervals: Rate: 74 WI: 110 QRSD: 88 QT: 370 QTc: 410 [place]: P: 47 WI: 110 QRS: 63 T: 66 INTERPRETIVE STATEMENTS: Sinus rhythm with short WI Otherwise normal ECG Compared to ECG 01/22/2021 11:28:12 Short WI interval now present Sinus bradycardia no longer present Electronically Signed On 07-01-21 09:44:03 CDT by Guerrero Montez
[2021-07-01] MEDS ORDERED: NA CHLORIDE 0.9% 1,000 ML IV ONE (10:00)
--- NOTE | 2021-07-01 11:05 | P.PN ---
Subjective Date of Service: 07/01/21 Chief Complaint: Chest pain Subjective: New changes (CT intermittent dizziness overnight Borderline low blood pressure today On IV fluid boluses now) Physical Examination - Vital Signs Temperature: 96.8 F Blood Pressure: 122/58 Pulse: 58 Respirations: 16 Pulse Ox (%): 94 - Studies Laboratory Data (last 24 hrs) 07/01/21 05:00: Sodium 142, Potassium 4.4, BUN 20 H, Creatinine 0.78, Glucose 86, Total Bilirubin 0.2, AST 11 L, ALT 15, Alkaline Phosphatase 61, Triglycerides 119, Cholesterol 134, HDL Cholesterol 61 H, Cholesterol/HDL Ratio 2.20 07/01/21 05:00: WBC 6.7, Hgb 12.7, Hct 38.0, Plt Count 201 D 06/30/21 12:17: PT 10.8, INR 0.98 06/30/21 12:17: WBC 6.5, Hgb 14.1, Hct 40.9, Plt Count 252 06/30/21 12:17: Sodium 143, Potassium 3.7, BUN 22 H, Creatinine 0.80, Glucose 101, Magnesium 1.8, Total Bilirubin 0.2, AST 11 L, ALT 20, Alkaline Phosphatase 76 Assessment And Plan Physician Review: Patient Assessed, Agree with Above Assessment and Plan Physician Review Additional Text: Chest x-rayno acute infiltrate Head CTno acute intracranial abnormality - Physical Exam General: Alert, In no apparent distress, Oriented x3, Cooperative HEENT: Atraumatic, Normocephalic, PERRLA Neck: Supple, JVD not distended Respiratory: Clear to auscultation bilaterally, Normal air movement Cardiovascular: No edema, Normal pulses, Regular rate/rhythm, Normal S1 S2 Capillary refill: <2 Seconds Gastrointestinal: Normal bowel sounds, Soft and benign, Non-distended, No ascites Musculoskeletal: No clubbing, No swelling Integumentary: No rashes, No breakdown, No significant lesion, No tenderness/swelling Neurological: Normal speech, Normal strength at 5/5 x4 extr, Sensation intact, Cranial nerves 3-12 intact Impression Chest painwith abnormal exercise stress test Recurrent orthostatic hypotension with dizziness Possible acute coronary syndrome Plan Continue aggressive IV fluid If still recurrent low blood pressure, with dose of midodrine Unclear increasing follow blood pressure, may be cardiac, will need to rule out sepsis obtain blood culture/UA Chest x-ray shows no acute infiltrate Continue aspirin/Plavix/Lovenox therapeutic dose Serial set of cardiac enzymes negative Appreciate cardiology evaluation, plan for cardiac cath on Saturday Continue nicotine patch Subcutaneous Lovenox for DVT prophylaxis Advance directivefull code 07/01/21 11:05 07/01/21 11:08
[2021-07-01] MEDS: HYDROCODONE/APAP 5/325 MG TAB PO PRN (15:31)
--- NOTE | 2021-07-01 20:16 | CON ---
Date of Consultation: 07/01/[address] Koo on . I saw the patient on 07/01/2021. Reason For Consultation: Unstable angina and positive stress test. History Of Present Illness: Ms. Briones is a 50-year-old white woman, she does not have any past card iac history. She takes medication for migraine. She came into Dr. Lemon's office yesterday with ch est pain. Underwent a stress test that was very positive with ST depression and chest pain. She was sent to the emergency room for further evaluation and treatment. Past Medical History: Includes migraines. Allergies: NONE. Review of Systems: Negative. Social History: Negative. Family History: Negative. Medications: At home are none. Physical Examination: Vital Signs: Stable, afebrile. HEENT: Negative. Neck: Supple with no bruit. Chest: Clear. Cardiac: Revealed regular rhythm and rate. No murmurs, gallops, or rubs. Abdomen: Benign. EXTREMITIES: Revealed no clubbing, cyanosis, or edema. Diagnostic Data: Showed a positive stress test. Impression And Plan: Chest pain, positive stress test consistent with unstable angina and possible c oronary artery disease. The patient is on aspirin, Plavix, Lipitor, Lovenox, I agree with this prese nt regimen, consider use of low-dose beta-luke. Plan for catheterization on Saturday morning. The patient understands the risk and the benefits of the procedure and she agreed to proceed. Case was d iscussed with Dr. Koo. LUIGI/KYMBERLY Voice ID: [id number] Report ID: [id number]
[2021-07-01] MEDS: ATORVASTATIN 40 MG TAB PO SCH (20:23)
[2021-07-02] MEDS: HYDROCODONE/APAP 5/325 MG TAB PO PRN ×3 (03:36→17:58)
[2021-07-02 03:48] LABS: Urine Appearance Clear (Clear); Urine Bilirubin Negative (Negative); Urine Blood Trace-lysed (Negative); Urine Color Yellow (Yellow); Urine Glucose Negative (Negative); Urine Protein Negative (Negative); Urine Specific Gravity 1.025 (1.005-1.030)
[2021-07-02 03:50] LABS: Urine Microscopic Reflex ORDER UMIC
[2021-07-02 03:57] LABS: Urine Bacteria <20 /HPF (<20); Urine RBC <5 /HPF (NONE SEEN)
[2021-07-02] MEDS: NA CHLORIDE 0.9% 1,000 ML IV SCH ×2 (05:28→10:00)
[2021-07-02] MEDS: MORPHINE 2 MG/ML SYR IV PRN (07:05)
[2021-07-02] MEDS: NICOTINE 14 MG/PAT TD SCH (08:07)
[2021-07-02] MEDS: CLOPIDOGREL 75 MG TABLET PO SCH (08:08)
[2021-07-02] MEDS: ENOXAPARIN 60 MG/0.6 ML SQ SCH ×2 (08:08→21:00)
[2021-07-02] MEDS: ASPIRIN EC 81 MG TAB PO SCH (08:08)
--- NOTE | 2021-07-02 13:16 | P.PN ---
Subjective Date of Service: 07/02/21 Chief Complaint: Chest pain Subjective: No new changes, No C/O voiced (Dizziness improved, no more chest pain Complain of mild shortness of breath this morning but resolved now after hold off IV follow) Physical Examination - Vital Signs Temperature: 97.9 F Blood Pressure: 120/64 Pulse: 66 Respirations: 16 Pulse Ox (%): 96 Assessment And Plan Physician Review: Patient Assessed, Agree with Above Assessment and Plan Physician Review Additional Text: Chest x-rayno acute infiltrate Head CTno acute intracranial abnormality - Physical Exam General: Alert, In no apparent distress, Oriented x3, Cooperative HEENT: Atraumatic, Normocephalic, PERRLA Neck: Supple, JVD not distended Respiratory: Clear to auscultation bilaterally, Normal air movement Cardiovascular: No edema, Normal pulses, Regular rate/rhythm, Normal S1 S2 Capillary refill: <2 Seconds Gastrointestinal: Normal bowel sounds, Soft and benign, Non-distended, No ascites Musculoskeletal: No clubbing, No swelling Integumentary: No rashes, No breakdown, No significant lesion, No tenderness/swelling Neurological: Normal speech, Normal strength at 5/5 x4 extr, Sensation intact, Cranial nerves 3-12 intact Impression Chest painwith abnormal exercise stress test Recurrent orthostatic hypotension with dizziness Possible acute coronary syndrome Plan Blood pressure improving, DC IV fluid If required low blood pressure, with dose midodrine Follow-up plan for cardiac cath in a.m. Chest x-ray shows no acute infiltrate Continue aspirin/Plavix/Lovenox therapeutic dose Appreciate cardiology evaluation, plan for cardiac cath on Saturday Continue nicotine patch Subcutaneous Lovenox for DVT prophylaxis Advance directivefull code 07/02/21 13:15 Time Spent Managing PTS Care (In Minutes): 35
[2021-07-02] MEDS: ATORVASTATIN 40 MG TAB PO SCH (21:35)
[2021-07-02] MEDS ORDERED: ALPRAZOLAM 0.25 MG TABLET PO ONE (21:59)
[2021-07-03] MEDS: CLOPIDOGREL 75 MG TABLET PO SCH (06:38)
[2021-07-03] MEDS: ASPIRIN EC 81 MG TAB PO SCH (06:38)
[2021-07-03] MEDS: MORPHINE 2 MG/ML SYR IV PRN (06:44)
[2021-07-03] MEDS: NICOTINE 14 MG/PAT TD SCH (08:38)
[2021-07-03] MEDS ORDERED: HEPA 1000U/500MLS 1,000 UNIT/500 ML BAG IV ONE (10:19)
[2021-07-03] MEDS ORDERED: FENTANYL CITR 100 MCG/2 ML ONE (10:19)
[2021-07-03] MEDS ORDERED: NA CHLORIDE 0.9% 0 ML ONE (10:20)
[2021-07-03] MEDS ORDERED: MIDAZOLAM HCL 2 MG/2 ML INJ ONE ×2 (10:20→11:12)
[2021-07-03] MEDS ORDERED: ATROPINE SULF 1 MG/10 ML SYR IV ONE (10:20)
[2021-07-03] MEDS ORDERED: NA CHLORIDE 0.9% 500 ML ONE (10:37)
[2021-07-03 13:36] VITALS: BP 129/62; TEMP 97.2; O2SAT 95
[2021-07-03] MEDS: HYDROCODONE/APAP 5/325 MG TAB PO PRN (13:43)
--- NOTE | 2021-07-03 22:49 | OP ---
Date of Procedure: 07/03/2021 Surgeon: Guerrero Montez MD Adjunct Communications Faculty Member: Ms. Lala Gagnon. Procedure: Left heart catheterization and selective coronary arteriogram. Indication: Positive stress test and chest pain. The patient has been admitted to the hospital for observation over the weekend because of persistent chest pain and positive stress test at Dr. Lemon' s office. Description Of Procedure: Today on 07/03/2021, [facility], prep ped and draped in routine sterile fashion, given Versed and fentanyl for sedation. A 6-Maltese sheath was introduced in the right common femoral artery using the Seldinger technique. She was given Vers ed, fentanyl for sedation. Angiography in the groin was normal. Angio-Seal was used to close the ca se. Betzy catheter, left and right were used to cannulate the left main and right main respectivel y. She was found to have perfectly normal coronaries without any focal stenosis or plaquing. The pa tient tolerated the procedure well. There were no complications. Blood loss was 5 cc. Postoperative Diagnoses: Positive chest pain, positive stress test, normal coronaries. Plan: Continue medical therapy. Disposition: The patient will remain in the hospital for 2 hours of bedrest after which she can go h ome. I will see her in the office in 2 weeks. No change in medical therapy. LUIGI/BRIANL Voice ID: [id number] Report ID: [id number]
--- NOTE | 2021-07-04 07:23 | ECHO ---
HEIGHT: 5 ft 7 in WEIGHT: 142 lb 14.4 oz DATE OF STUDY: 07/03/[address]: Guerrero Montez MD 2-DIMENSIONAL: YES M.MODE: YES DOPPLER: YES COLOR FLOW: YES TDS: NO PORTABLE: YES DEFINITY: NO BUBBLE STUDY: NO DIAGNOSIS: CHEST PAIN CARDIAC HISTORY: CATHERIZATION: YES SURGERY: NO PROSTHETIC VALVE: NO PACEMAKER: NO MEASUREMENTS (cm) DIASTOLIC (NORMALS) SYSTOLIC (NORMALS) IVSd 0.9 (0.6-1.2) LA Diam 2.5 (1.9-4.0) LVEF 64% LVIDd 4.0 (3.5-5.7) LVIDs 2.6 (2.0-3.5) %FS 34% LVPWd 1.0 (0.6-1.2) Ao Diam 2.5 (2.0-3.7) 2 DIMENSIONAL ASSESSMENT: RIGHT ATRIUM: NORMAL LEFT ATRIUM: NORMAL RIGHT VENTRICLE: NORMAL LEFT VENTRICLE: NORMAL TRICUSPID VALVE: NORMAL MITRAL VALVE: NORMAL PULMONIC VALVE: NORMAL AORTIC VALVE: NORMAL PERICARDIAL EFFUSION: NONE AORTIC ROOT: NORMAL LEFT VENTRICULAR WALL MOTION: NORMAL. DOPPLER/COLOR FLOW: MILD MITRAL REGURGITATION. COMMENTS: NORMAL LEFT VENTRICULAR EJECTION FRACTION 60-65%. NORMAL WALL MOTION. GRADE I DIASTOLIC DYSFUNCTION. MILD MITRAL REGURGITATION. TECHNOLOGIST: SHARONA RODRIGUEZ
--- NOTE | 2021-07-09 22:37 | P.DS ---
Discharge Date: 07/03/21 Disposition: ROUTINE DISCHARGE Discharge Condition: GOOD Reason for Admission: Chest pain Consultations: Cardiology; cardiac catheterization Brief History of Present Illness: 50-year-old female past medical history of chronic tobacco use, no hyperlipidemia or hypertension has been having chronic chest pain since the last 2 months, status post multiple hospitalization now ruled out for acute coronary syndrome. She was referred to see cardiologyDr. Troy condon who had a scheduled exercise stress test in the office today. Stress test was reportedly abnormal with patient developing recurrence of chest pain as well as dizziness and a feeling of head fullness. She was sent from the cardiology office to the emergency room. Her chest pain symptoms are resolved now. She denies any nausea or vomiting. EKG in the emergency room shows normal sinus rhythm with no ST segment changes. Initial set of cardiac enzyme was negative. Patient admitted to family history of CADin grandmother and father with history of CVA. She denies any cardiac cath in the past. Hospital Course: Patient had a cardiac cath which did not reveal any substantial abnormalities. Patient will be medically managed and will follow up with cardiology in 1 to 2 weeks. At this time, patient is stable for discharge home. Vital Signs/Physical Exam: Temp Pulse Resp BP Pulse Ox 97.2 F 56 16 129/62 95 07/03/21 13:13 07/03/21 13:13 07/03/21 14:43 07/03/21 13:13 07/03/21 14:43 General: Alert, In no apparent distress, Oriented x3 Respiratory: Clear to auscultation bilaterally, Normal air movement Cardiovascular: Regular rate/rhythm, Normal S1 S2 Laboratory Data at Discharge: WBC 6.7 K/uL (4.3-10.9) 07/01/21 05:00 Hgb 12.7 g/dL (12.0-15.0) 07/01/21 05:00 Hct 38.0 % (36.0-45.0) 07/01/21 05:00 Plt Count 201 K/uL (152-406) D 07/01/21 05:00 PT 10.8 SECONDS (9.5-12.5) 06/30/21 12:17 INR 0.98 06/30/21 12:17 Sodium 142 mmol/L (136-145) 07/01/21 05:00 Potassium 4.4 mmol/L (3.5-5.1) 07/01/21 05:00 BUN 20 mg/dL (7-18) H 07/01/21 05:00 Creatinine 0.78 mg/dL (0.55-1.3) 07/01/21 05:00 Glucose 86 mg/dL (74-106) 07/01/21 05:00 Magnesium 1.8 mg/dL (1.8-2.4) 06/30/21 12:17 Total Bilirubin 0.2 mg/dL (0.2-1.0) 07/01/21 05:00 AST 11 U/L (15-37) L 07/01/21 05:00 ALT 15 U/L (12-78) 07/01/21 05:00 Alkaline Phosphatase 61 U/L (45-117) 07/01/21 05:00 Triglycerides 119 mg/dL (<150) 07/01/21 05:00 Cholesterol 134 mg/dL (<200) 07/01/21 05:00 HDL Cholesterol 61 mg/dL (40-60) H 07/01/21 05:00 Cholesterol/HDL Ratio 2.20 07/01/21 05:00 Home Medications: NK [No Home Meds] 06/30/21 Physician Discharge Instructions: -DC IV and DC home -Follow-up with PCP in 1 to 2 weeks -Follow-up with Cardiology in 1 to 2 weeks -Please call Dr. Cosme at [phone] if any questions regarding hospital stay -Please call nursing station at [phone] if any nursing or medication questions -Return to the emergency room if symptoms worsen Diet: AHA Activity: Fall precautions Followup: NONE,NONE [Primary Care Provider] - 1-2 Weeks ( Call for appointment.) Poncho Lemon MD [ACTIVE - CAN ADMIT] - 1-2 Weeks (Call for appointment.) Time spent managing pt's care (in minutes): 35
== END 2021-07-03 15:10 | disposition home or self-care (01) | DRG 287 ==
LOC: ER 11:55 → ERHOLD 17:32 → 2ND 19:30 → OBSVTOIN 07-01 09:16
PROVIDERS: ADMIT Internal Medicine; ATTEND Internal Medicine
PROC: B201YZZ Plain Radiography of Multiple Coronary Arteries using Other Contrast (ICD-10-PCS; principal; 2021-07-03)
DX: R07.9 Chest pain, unspecified (principal); R94.39 Abnormal result of other cardiovascular function study; I95.1 Orthostatic hypotension; Z82.49 Family history of ischemic heart disease and other diseases of the circulatory system; Z82.3 Family history of stroke; Z72.0 Tobacco use; Z20.822 Contact with and (suspected) exposure to COVID-19
CPT/HCPCS: 36415; 70450; 71045; 80048; 80053; 80061; 80076; 81003; 81015; 83735; 83880; 84443; 84484; 85025; 85610; 87040; 93005; 93306; 93454; 96374; 96375; 99285; C1760; C1893; G0269; G0378; J0583; J1644; J1650; J2250; J2270; J2405; J3010; J7030; J7040; J8597; Q9967; U0003